=== PATIENT | male | born 2000 | race Two or more races ===

== ENCOUNTER 2025-08-08 13:01 | Inpatient (IN) | payer MEDICAID, SELFPAY ==
[2025-08-08] VITALS (26 sets, daily range): BP systolic 116–144; BP diastolic 73–91; PULSE 101–197; RESP 18–26; TEMP 36.3–37.2; O2SAT 96–98; BMI 32.4
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
[2025-08-08] MEDS: LORazepam 2 MG/ML VIAL IM (13:13)
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
--- NOTE | 2025-08-08 13:24 | EKG_ITS ---
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
--- NOTE | 2025-08-08 13:43 | PC.NURSE ---
md aware of heart rate 190s placed pt on monitor pulse ox. pt is diphoretic but not c/o of pain. ekg done and pt is in svt.
[2025-08-08 13:50] LABS: Basophils # (Auto) 0.1 Thou/mm3 (0.0-0.2); Basophils % (Auto) 0 % (0-2.5); Eosinophils # (Auto) 0.1 Thou/mm3 (0.0-0.5); Eosinophils % (Auto) 0 % (0-10); Hematocrit 48.9 % (41.0-53.0); Hemoglobin 16.5 g/dL (13.5-16.0); Immature Granulocytes Auto 0.33 Thou/mm3 (0.00-0.00); Lymphocytes # (Auto) 2.5 Thou/mm3 (1.0-4.8); Lymphocytes % (Auto) 10 % (10-50); Mean Corpuscular HGB Conc 33.7 g/dl (31.0-37.0); Mean Corpuscular Hemoglobin 29.0 pg (25.0-35.0); Mean Corpuscular Volume 86 fL (80-100); Monocytes # (Auto) 1.1 Thou/mm3 (0.0-0.8); Monocytes % (Auto) 5 % (0-12); Neutrophils # (Auto) 20.5 Thou/mm3 (1.8-7.7); Neutrophils % (Auto) 84 % (37-80); Nucleated Red Blood Cell # 0.00 Thou/mm3 (0.00-0.00); Nucleated Red Blood Cell % 0 /100 WBC (0); Platelet Count 364 Thou/mm3 (140-440); RDW Standard Deviation 38.4 fL (35.1-43.9); Red Blood Count 5.68 Miln/mm3 (4.50-5.90); White Blood Count 24.5 Thou/mm3 (3.8-10.6)
[2025-08-08] MEDS: LORazepam 2 MG/ML VIAL 1 MG IVP (14:10)
[2025-08-08] MEDS: SODIUM CHLORIDE 0.9% 1000 ML 1,000 ML 999 ML IV ×2 (14:11→15:42)
[2025-08-08 14:13] LABS: Amphetamine/Methamp Scrn,U Negative (Negative); Barbiturate Screen,Urine Negative (Negative); Benzodiazepines Screen,Urine Negative (Negative); Benzoylecgonine Screen, Ur Negative (Negative); Fentanyl Screen,Urine Negative (Negative); Opiate Screen,Urine Negative (Negative); THC Screen,Urine Negative (Negative)
[2025-08-08 14:28] LABS: Lactate (Lactic Acid) 22.0 mMol/L (0.4-2.0)
[2025-08-08 14:48] LABS: Base Excess -9 (-3-3); HCO3 16 mEq/L (20-26); Inspired Oxygen, FIO2 21 %; O2 Saturation 98 % (91-98); PCO2 29 mmHg (32.0-48.0); PO2 91 mmHg (83-108); pH, Arterial 7.33 (7.35-7.45)
[2025-08-08 15:03] LABS: Allen Test Performed/OK; Puncture Site Right Radial
[2025-08-08 15:14] LABS: Alanine Aminotransferase 66 U/L (10-49); Albumin, Serum 5.7 gm/dL (3.5-5.0); Albumin/Globulin Ratio 2.2 (1.2-2.2); Alcohol, Blood Medical < 3.0 mg/dL (0-10.0); Alkaline Phosphatase 110 U/L (46-116); Anion Gap 29 (7-16); Aspartate Amino Transferase 34 U/L (0-34); BUN/Creatinine Ratio 9 Ratio (12-20); Bilirubin,Total 0.4 mg/dL (0.3-1.2); Blood Urea Nitrogen 14 mg/dL (9-23); Calcium 10.5 mg/dL (8.3-10.6); Calcium (Corrected) 10.5 mg/dL (8.5-10.1); Chloride 102 mMol/L (98-107); Creatinine (Component) 1.5 mg/dL (0.6-1.3); Estimated Creatinine Clearance 91.9 mL/min (>60); Globulin 2.6 gm/dL (2.3-3.5); Glucose 310 mg/dL (74-106); Osmolality,Calculated 293 (275-295); Potassium 3.6 mMol/L (3.4-5.1); Procalcitonin 0.08 ng/ml (0.0-0.49); Sodium 141 mMol/L (136-145); Total Protein 8.3 gm/dL (5.7-8.2); eGFR > 60 See Note
[2025-08-08 15:16] LABS: Carbon Dioxide < 10.0 mMol/L (20.0-31.0)
[2025-08-08 15:18] LABS: Ammonia 197 uMol/L (11-32)
[2025-08-08 15:50] LABS: Collection Type, Urine Catheter
[2025-08-08 15:56] LABS: Bilirubin,Urine Negative (Negative); Blood,Urine Negative (Negative); Clarity,Urine Clear (Clear/Hazy); Color,Urine Yellow (Lt Yel-Yel); Culture Indicated,Urine Not Indicated; Glucose, Urine Negative (Negative); Ketones,Urine Negative (Negative); Leukocyte Esterase,Urine Negative (Negative); Nitrite,Urine Negative (Negative); PH,Urine 5.5 (5.0-7.0); Protein,Urine 1+ (Neg - Trace); RBC,Urine 1 /hpf (0-3); Specific Gravity,Urine 1.021 (1.001-1.035); Squamous Epithelial Cell,Urine 1 /hpf (0-5); Urobilinogen,Urine Negative mg/dL (0.0-1.0); WBC,Urine 1 /hpf (0-5)
--- NOTE | 2025-08-08 16:00 | PC.NURSE ---
admit md at bedside for admission evaluation. day care assistant and sitter at bedside.
[2025-08-08 16:04] LABS: Beta Hydroxybutyrate 0.1 mmol/L (<0.6)
[2025-08-08 16:29] LABS: Creatine Kinase 131 U/L (34-171); Salicylate < 3.0 mg/dL
[2025-08-08 16:38] LABS: Reflex Lactate? Y
[2025-08-08 16:42] LABS: Lactic Acid, 3 HR 5.3 mMol/L (0.4-2.0)
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
--- NOTE | 2025-08-08 17:34 | XR_ITS ---
EXAMINATION: AP chest single view TECHNIQUE: AP portable semiupright chest single view Date and time: August 08, 2025, 1747 hours INDICATIONS: Tachycardia tachypnea today. FINDINGS: Minor prominence left ventricle Moderate vascular congestion. Mild elevation right hemidiaphragm. No pneumonia or pulmonary edema. The trachea is deviated to the right which may be a function of head rotation clinical correlation advised IMPRESSION: Moderate vascular congestion
--- NOTE | 2025-08-08 17:39 | XR_ITS ---
Examination: Abdomen sonogram, Limited Date and time of exam: August 08, 2025, 1938 hours INDICATIONS: Hyper ammonia anemia today elevated liver function tests, suspect primary bowel cellular disease Technique: Real-time weiss scale transabdominal sonographic images of the upper abdomen obtained. Findings: Normal gallbladder. Normal common bile duct 0.5 cm Pancreas obscured by bowel gas Very limited visualization of the liver with fatty infiltration Normal hepatopetal portal venous flow Patent IVC IMPRESSION: Limited study Normal gallbladder Very poor visualization liver
[2025-08-08 18:03] LABS: Ammonia 25 uMol/L (11-32); Glucose Estimated Average 103 mg/dL (80-131); Hemoglobin A1C 5.2 % Hgb (4.8-6.0)
[2025-08-08 18:05] LABS: Alanine Aminotransferase 62 U/L (10-49); Albumin, Serum 4.7 gm/dL (3.5-5.0); Albumin/Globulin Ratio 2.4 (1.2-2.2); Alkaline Phosphatase 85 U/L (46-116); Anion Gap 11 (7-16); Aspartate Amino Transferase 72 U/L (0-34); BUN/Creatinine Ratio 10 Ratio (12-20); Bilirubin,Total 0.3 mg/dL (0.3-1.2); Blood Urea Nitrogen 10 mg/dL (9-23); Calcium 9.0 mg/dL (8.3-10.6); Calcium (Corrected) 9.0 mg/dL (8.5-10.1); Carbon Dioxide 18.9 mMol/L (20.0-31.0); Chloride 110 mMol/L (98-107); Creatinine (Component) 1.0 mg/dL (0.6-1.3); Estimated Creatinine Clearance 137.8 mL/min (>60); Globulin 2.0 gm/dL (2.3-3.5); Glucose 106 mg/dL (74-106); Osmolality,Calculated 278 (275-295); Potassium 4.2 mMol/L (3.4-5.1); Sodium 140 mMol/L (136-145); Total Protein 6.7 gm/dL (5.7-8.2); eGFR > 60 See Note
[2025-08-08] MEDS: RINGERS LACTATED 1000 ML 1,000 ML 125 ML IV (18:05)
--- NOTE | 2025-08-08 18:55 | PC.NURSE ---
admit aware that pt is starting to get al little agitated and may need to have some medication to relax him. pt did not have any meds today that he usually takes at home.
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
[2025-08-08 20:45] LABS: Hepatitis A Antibody IgM Non Reactive (Non React); Hepatitis B Core Antibody IgM Non Reactive (Non React); Hepatitis B Surface Antigen Non Reactive (Non React); Hepatitis C Antibody Non Reactive (Non React)
[2025-08-08 21:13] LABS: Lactate (Lactic Acid) 2.7 mMol/L (0.4-2.0)
[2025-08-09] VITALS: BP 117/78; PULSE 95; PULSE 99; RESP 12; TEMP 37.2; O2SAT 96
[2025-08-09 00:11] LABS: Reflex Lactate? Y
[2025-08-09 01:03] LABS: Lactic Acid, 3 HR 1.9 mMol/L (0.4-2.0)
[2025-08-09] MEDS: RINGERS LACTATED 1000 ML 1,000 ML 125 ML IV ×2 (02:26→10:13)
[2025-08-09 04:00] VITALS: BP 135/67; PULSE 75; PULSE 93; RESP 24; TEMP 36.6; O2SAT 96
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
[2025-08-09 06:08] LABS: Basophils # (Auto) 0.0 Thou/mm3 (0.0-0.2); Basophils % (Auto) 0 % (0-2.5); Eosinophils # (Auto) 0.1 Thou/mm3 (0.0-0.5); Eosinophils % (Auto) 1 % (0-10); Hematocrit 39.9 % (41.0-53.0); Hemoglobin 14.0 g/dL (13.5-16.0); Immature Granulocytes Auto 0.04 Thou/mm3 (0.00-0.00); Lymphocytes # (Auto) 1.3 Thou/mm3 (1.0-4.8); Lymphocytes % (Auto) 12 % (10-50); Mean Corpuscular HGB Conc 35.1 g/dl (31.0-37.0); Mean Corpuscular Hemoglobin 29.7 pg (25.0-35.0); Mean Corpuscular Volume 85 fL (80-100); Monocytes # (Auto) 1.0 Thou/mm3 (0.0-0.8); Monocytes % (Auto) 9 % (0-12); Neutrophils # (Auto) 8.5 Thou/mm3 (1.8-7.7); Neutrophils % (Auto) 78 % (37-80); Nucleated Red Blood Cell # 0.00 Thou/mm3 (0.00-0.00); Nucleated Red Blood Cell % 0 /100 WBC (0); Platelet Count 230 Thou/mm3 (140-440); RDW Standard Deviation 38.5 fL (35.1-43.9); Red Blood Count 4.71 Miln/mm3 (4.50-5.90); White Blood Count 10.9 Thou/mm3 (3.8-10.6)
[2025-08-09 06:48] LABS: Alanine Aminotransferase 75 U/L (10-49); Albumin, Serum 4.3 gm/dL (3.5-5.0); Albumin/Globulin Ratio 2.9 (1.2-2.2); Alkaline Phosphatase 77 U/L (46-116); Anion Gap 10 (7-16); Aspartate Amino Transferase 171 U/L (0-34); BUN/Creatinine Ratio 9 Ratio (12-20); Bilirubin,Total 0.5 mg/dL (0.3-1.2); Blood Urea Nitrogen 7 mg/dL (9-23); Calcium 8.8 mg/dL (8.3-10.6); Calcium (Corrected) 8.8 mg/dL (8.5-10.1); Carbon Dioxide 22.4 mMol/L (20.0-31.0); Chloride 109 mMol/L (98-107); Creatinine (Component) 0.8 mg/dL (0.6-1.3); Estimated Creatinine Clearance 165.3 mL/min (>60); Globulin 1.5 gm/dL (2.3-3.5); Glucose 96 mg/dL (74-106); Magnesium 1.9 mg/dL (1.6-2.6); Osmolality,Calculated 279 (275-295); Phosphorous 3.2 mg/dL (2.4-5.1); Potassium 3.9 mMol/L (3.4-5.1); Sodium 141 mMol/L (136-145); Thyroid Stimulating Hormone 1.40 uIU/mL (0.55-4.78); Total Protein 5.8 gm/dL (5.7-8.2); eGFR > 60 See Note
[2025-08-09 06:54] VITALS: PULSE 105; RESP 105; RESP 16
[2025-08-09 08:00] VITALS: BP 121/75; PULSE 117; PULSE 95; RESP 15; TEMP 36.6; O2SAT 94
--- NOTE | 2025-08-09 10:08 | PC.SS ---
SS follow up note; SS was informed by Dr. Capps that patient is medically cleared. SS updated Дмитрий STOVALL and he informed SS he would contact Dorota RIDDLE to update and inform her patient is medically cleared.
[2025-08-09] MEDS: HEPARIN SOD INJ 5000 UNIT/ML VIAL SC (10:14)
--- NOTE | 2025-08-09 10:30 | PC.SS ---
CHIEF ENVIRONMENTAL COMMITMENT OFFICER notified that patient has been medically cleared for mental health evaluation. CHIEF ENVIRONMENTAL COMMITMENT OFFICER notified ED coordinator.
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
[2025-08-09 12:00] VITALS: BP 129/86; PULSE 91; PULSE 93; RESP 22; TEMP 36.3; O2SAT 96
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
--- NOTE | 2025-08-09 15:25 | PC.NURSE ---
Confirmed with Dr. Merchant as seizure as underlying cause of lactic acidosis.
--- NOTE | 2025-08-09 15:27 | PC.NURSE ---
Confirmed discharge orders with Dr. Merchant. per pt is ready for discahrge.
[2025-08-09 16:00] VITALS: BP 131/80; PULSE 104; PULSE 73; RESP 20; TEMP 37.1; O2SAT 97
== END 2025-08-09 16:10 | disposition skilled nursing facility (03) | DRG 52 ==
LOC: SERX 15:55 → SERHOLD 17:53 → S2NX 20:22
PROVIDERS: Student in an Organized Health Care Education/Training Program; Admitting Provider Student in an Organized Health Care Education/Training Program; Emergency Provider Emergency Medicine; PCP Family Medicine; Visit Provider Student in an Organized Health Care Education/Training Program
DX: G93.41 Metabolic encephalopathy (principal); Z78.1 Physical restraint status; F39 Unspecified mood [affective] disorder; E87.20 Acidosis, unspecified; D72.829 Elevated white blood cell count, unspecified; E72.20 Disorder of urea cycle metabolism, unspecified; R73.9 Hyperglycemia, unspecified; N17.9 Acute kidney failure, unspecified; R00.0 Tachycardia, unspecified; R74.01 Elevation of levels of liver transaminase levels; R62.50 Unspecified lack of expected normal physiological development in childhood
CPT/HCPCS: 36415; 36600; 71045; 76705; 80053; 80074; 80307; 80320; 80329; 81001; 82010; 82140; 82550; 82803; 83036; 83605; 83735; 84100; 84145; 84443; 85025; 87040; 93005; 96127; 96361; 96374; 99285; J1644; J2060; J7030; J7120; G0480

== ENCOUNTER 2025-08-25 15:35 | Inpatient (IN) | payer MEDICAID, SELFPAY ==
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
--- NOTE | 2025-08-25 16:22 | EDNOTE_ITS ---
ED Psych RME/HPI General Chief Complaint: Psychiatric Symptoms Stated Complaint: NOT TALKING Time Seen by Provider: 08/25/25 16:03 Arrival date/time: 08/25/25 15:35 25-year-old male patient with significant history of schizophrenia, taking haloperidol, risperidone was brought in by caregiver after patient was noted to be more aggressive today, pacing a lot, not following commands and not talking. No other pertinent information can be evaluated at this time. Patient is taking an unrecalled seizure medication. Related Data Home Medications ?Medication ?Instructions ?Recorded ?Confirmed acetaminophen 500 mg tablet (Pain 500 mg PO Q6H PRN fe marcus or pain 08/08/25 08/25/25 Relief (acetaminophen)) famotidine 20 mg tablet 20 mg PO BID 08/08/25 loperamide 2 mg capsule 2 mg PO Q6H PRN loose stool 08/08/25 08/25/25 loratadine 10 mg tablet 10 mg PO Q24H PRN allergy sy mptoms 08/08/25 08/25/25 lorazepam 1 mg tablet 0.5 mg PO Q8H PRN agitation 08/08/25 08/25/25 melatonin 3 mg capsule 3 mg PO HS 08/08/25 08/25/25 menthol 0.44 %-zinc oxide 20.6 % 1 applic topical BID PRN wound 08/08/25 08/25/25 topical ointment (Calmoseptine) healing multivitamin (One Daily 1 tab PO DAILY 08/08/2508/06 Multivitamin tablet) polyethylene glycol 3350 17 17 g PO .q2day PRN constip ation 08/08/25 08/25/25 gram/dose oral powder (ClearLax) risperidone 1 mg tablet 1 mg PO .am 08/08/25 5 risperidone 2 mg tablet 2 mg PO BID 08/08/25 5 sennosides 8.6 mg tablet (senna) 8.6 mg PO HS 08/08/25 08/25/25 Allergies Allergy/AdvReac Type Severity Reaction Status Date / Time No Known Allergies Allergy Verified 08/25/25 15:38 Review of Systems Review of Systems Narrative Review of Systems: Review of system reviewed and within normal limits except mentioned in HPI ED Exam Narrative Physical exam: VITAL SIGNS: Reviewed. GENERAL APPEARANCE: Alert and no eye contact, does not follows commands, no acute distress, aggressive HEAD AND FACE: Non-traumatic. ENT: PERRL, pink conjunctivitis, eyelid no trauma, Mucous membrane moist. NECK: Supple, nontender, no nuchal rigidity. CHEST: No tenderness, no crepitus, no paradoxical movement, no retractions. LUNGS: Clear, well ventilated, symmetric, no rales, no wheezing, no ronchi, no stridor, good breath sounds bilaterally. HEART: Regular rate, regular rhythm, no murmur, no gallops. ABDOMEN: Soft, positive bowel sounds, nondistended, no guarding, nontender, no rebound, no masses, RECTAL: Deferred. GENITAL: Deferred. NEUROLOGICAL: Gross motor function intact sensory function intact, Appropriate for age. MUSCULOSKELETAL: low back nontender, full range of motion. EXTREMITIES: Nontender, full range of motion. SKIN: Color pink, dry, no rash, no lacerations, no abrasions, no contusions. LYMPHATICS: Deferred. Course Quality Measures none Orders Category Date Time Status 4 HR Behavioral Restraints Q15M Care 08/25/25 16:00 Completed COVID-19 Screening Questionnaire NOW Care 08/25/25 20:33 Active Decision to Admit X1 Care 08/25/25 20:33 Completed EKG (ED ONLY) *Do not use* NOW Care 08/25/25 16:49 Completed One-to-one observation NOW Care 08/25/25 19:31 Active Suicide precautions NOW Care 08/25/25 19:[address] head/brain wo con Stat Exams 08/25/25 18:12 Taken EKG (ED Only) Stat Exams 08/25/25 16:49 Draft Acetone [Beta Hydroxybutyrate] Stat Lab 08/25/25 16:50 Completed Ammonia Stat Lab 08/25/25 16:50 Completed CBC Stat Lab 08/25/25 16:50 Completed Comprehensive Metabolic Panel Stat Lab 08/25/25 16:50 Completed Creatine Kinase Stat Lab 08/25/25 19:08 Completed Drug Screen,Urine Stat Lab 08/25/25 17:10 Completed Hemoglobin A1C [Glycohemoglobin w (eAG)] Stat Lab 08/25/25 16:50 Completed Lactate (Lactic Acid) Stat Lab 08/25/25 16:50 Completed Lactate (Lactic Acid) Stat Lab 08/25/25 19:25 Completed Magnesium Stat Lab 08/25/25 16:50 Completed Partial Thromboplastin Time Stat Lab 08/25/25 16:50 Completed Renal Function Panel Stat Lab 08/25/25 19:25 Completed Urinalysis, C/S if Indicated Stat Lab 08/25/25 17:10 Completed VBG [Venous Blood Gas] Stat Lab 08/25/25 16:50 Completed VBG [Venous Blood Gas] Stat Lab 08/25/25 19:25 Completed Vitamin B1 (Thiamine)* Stat Lab 08/25/25 Ordered DiphenhydrAMINE INJ [Benadryl Inj] Med 08/25/25 16:18 Discontinued 50 mg IVP X1 ONE LORazepam [Ativan Inj] Med 08/25/25 16:18 Discontinued 2 mg IVP X1 ONE Nitroglycerin [Nitrostat 1/150] Med 08/25/25 16:18 Discontinued 0.4 mg SL [id number] PRN Ringers Lactated 1000 ml [Lactated Ringers] 1,000 ml Med 08/25/25 16:19 Discontinued IV 999 mls/hr Ringers Lactated 1000 ml [Lactated Ringers] 1,000 ml Med 08/25/25 18:15 Discontinued IV 999 mls/hr Ringers Lactated 1000 ml [Lactated Ringers] 1,000 ml Med 08/25/25 19:39 Discontinued IV 999 mls/hr Sodium Chloride 0.9% 1000 ml [Ns] 1,000 ml Med 08/25/25 17:25 Discontinued IV 999 mls/hr Vital Signs Vital signs: Vital Signs Pulse Rate 132 H 08/25/25 16:57 Respiratory Rate 24 H 08/25/25 16:57 Blood Pressure 150/91 H 08/25/25 16:57 Pulse Oximetry (%) 95 08/25/25 16:57 Oxygen Delivery Method Room Air 08/25/25 16:57 Psych MDM Narrative MDM Narrative:: 25-year-old male patient with significant history of schizophrenia, taking haloperidol, risperidone was brought in by caregiver after patient was noted to be more aggressive today, pacing a lot, not following commands and not talking. No other pertinent information can be evaluated at this time. Patient is taking an unrecalled seizure medication. Code isela called, patient was well aggressive, patient was helped to the bed, and four-point restraint was ordered. Patient was given IV fluids, total of 3 L, IV Ativan, and Benadryl, on reevaluation patient was back to his baseline, I removed restraints. Patient's laboratory workup is significant for a lactic acid 4.1, WBC count of 18.2 initial VBG was noted to be acidotic. CO2 13.8. Anion gap of 21. Patient is having metabolic acidosis. Repeat lactic acid went down to 7.1 CT scan of the head came back unremarkable. Ammonia level was also elevated 104 creatinine kinase was elevated and 182 urinalysis negative for drug toxicity. Spoke with hospitalist, discussed the case, admitted the patient. Patient data External records reviewed:: None Clinical information provided by:: children[employer] caretaker Social determinants that could affect healthcare access:: none Patient has the following chronic illnesses:: Mental retardation, lactic acidosis, history of seizure disorder, chronic schizophrenia How is presenting disease/condition affected by chronic disease/condition?: exa cerbated by Evaluation data The following diagnostics were reviewed and interpreted by me:: lab results, radiology exam(s) and EKG tracing(s) Lab and/or radiology exams considered but not ordered:: None Interpretation Summary: Stable Medications / Prescriptions Medications or Prescriptions considered but not ordered:: None Medication administrations:: Medication Administration History Acetaminophen (Acetaminophen 325 Mg Tablet) 650 mg PO Q6H PRN PRN Reason: PAIN (1-3) OR FEVER > 100.4 Stop: 09/24/25 21:40 Enoxaparin Sodium (Enoxaparin Sod Inj 40 Mg/0.4 Ml Syringe) 40 mg SC QDAY ISAIAS Stop: 09/09/25 08:59 Lactated Ringer's (Lactated Ringers) 1,000 mls @ 100 mls/hr IV .Q10H ISAIAS Stop: 08/26/25 17:44 Potassium Phosphate 22.5 mmol/ (Sodium Chloride) 507.5 mls @ 82.778 mls/hr IV X1 ONE Stop: 08/26/25 03:56 Lactulose (Lactulose Syrup 20 Gm/30 Ml Udc) 10 gm PO BID ISAIAS; Protocol Stop: 09/25/25 08:59 Lorazepam (Lorazepam 2 Mg/Ml Vial) 2 mg IVP Q15MIN PRN PRN Reason: seizure breakthrough Pantoprazole Sodium (Pantoprazole 40 Mg Tablet) 40 mg PO QDAY ISAIAS Stop: 09/25/25 08:59 Sennosides (Senna Tablet) 1 tab PO QDAY ISAIAS; Protocol Stop: 09/25/25 08:59 Discontinued Medications Diphenhydramine HCl (Diphenhydramine Inj 50 Mg/Ml Vial) 50 mg IVP X1 ONE Stop: 08/25/25 16:19 Last Admin: 08/25/25 16:48 Dose: 50 mg Documented By: BY Lactated Ringer's (Lactated Ringers) 1,000 mls @ 999 mls/hr IV .Q1H1M ONE Stop: 08/25/25 17:19 Last Infusion: 08/25/25 17:49 Dose: Infused Documented By: Admin: 08/25/25 16:48 Dose: 999 mls/hr Documented By: BY Sodium Chloride (Ns) 1,000 mls @ 999 mls/hr IV .Q1H1M ONE Stop: 08/25/25 18:25 Last Infusion: 08/25/25 18:38 Dose: Infused Documented By: Admin: 08/25/25 17:36 Dose: 999 mls/hr Documented By: VL Lactated Ringer's (Lactated Ringers) 1,000 mls @ 999 mls/hr IV .Q1H1M ONE Stop: 08/25/25 19:15 Last Infusion: 08/25/25 20:15 Dose: Infused Documented By: Admin: 08/25/25 18:37 Dose: 999 mls/hr Documented By: BY Lactated Ringer's (Lactated Ringers) 1,000 mls @ 999 mls/hr IV .Q1H1M ONE Stop: 08/25/25 20:39 Last Admin: 08/25/25 19:58 Dose: 999 mls/hr Documented By: BR Lorazepam (Lorazepam 2 Mg/Ml Vial) 2 mg IVP X1 ONE Stop: 08/25/25 16:19 Last Admin: 08/25/25 16:44 Dose: 2 mg Documented By: BY Nitroglycerin (Nitroglycerin 0.4 Mg Subl Btl #25) 0.4 mg SL [id number] PRN PRN Reason: CHEST PAIN Stop: 09/24/25 16:17 Potassium Phos/Sodium Phos (Naph,[facility] Mbdb 1 Packet (1.5 Gm)) 1 packet PO X1 ONE Stop: 08/25/25 22:03 See above Consultations Consultation(s) initiated? (list below): No Diagnosis Psych Differential Diagnosis: acute psychosis, chronic schizophrenia, drug- induced psychotic disorder and acute anxiety Most likely diagnosis given after review of the tests above:: Metabolic acidosis Admission Indicated Admission indicated?: indicated Admission Request Was there a request for admission?: Yes Admission Attestation Admission request attestation: Discussed case with [Dr. Humphries] from Hospitalist service regarding admission. Discussed patients ED course, exam findings, labs, and radiology results. The Hospitalist [agrees] to accept the patient for admission. Disposition Plan Disposition Plan: Admit Discharge Plan Plan Patient Disposition: Admit Acute Care w/in Hospital Problem List Clinical Impression: Metabolic acidosis, Acute psychosis
[2025-08-25] MEDS: LORazepam 2 MG/ML VIAL IVP (16:44)
[2025-08-25] MEDS: RINGERS LACTATED 1000 ML 1,000 ML 999 ML IV ×3 (16:48→19:58)
--- NOTE | 2025-08-25 16:49 | EKG_ITS ---
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
[2025-08-25 16:57] VITALS: BP 150/91; PULSE 132; RESP 24; O2SAT 95
[2025-08-25 16:58] VITALS: BMI 38.2
[2025-08-25 17:05] LABS: Base Excess, Venous -11 (-3-3); O2 Saturation, Venous 84 % (96-97); PCO2, Venous 29 mmHg (36-56); PO2, Venous 50 mmHg (15-58); pH, Venous 7.29 (7.33-7.66)
[2025-08-25 17:06] LABS: Lactate (Lactic Acid) 14.1 mMol/L (0.4-2.0)
[2025-08-25 17:07] LABS: Basophils # (Auto) 0.1 Thou/mm3 (0.0-0.2); Basophils % (Auto) 0 % (0-2.5); Eosinophils # (Auto) 0.1 Thou/mm3 (0.0-0.5); Eosinophils % (Auto) 0 % (0-10); Hematocrit 46.9 % (41.0-53.0); Hemoglobin 15.8 g/dL (13.5-16.0); Immature Granulocytes Auto 0.13 Thou/mm3 (0.00-0.00); Lymphocytes # (Auto) 1.5 Thou/mm3 (1.0-4.8); Lymphocytes % (Auto) 8 % (10-50); Mean Corpuscular HGB Conc 33.7 g/dl (31.0-37.0); Mean Corpuscular Hemoglobin 28.9 pg (25.0-35.0); Mean Corpuscular Volume 86 fL (80-100); Monocytes # (Auto) 0.7 Thou/mm3 (0.0-0.8); Monocytes % (Auto) 4 % (0-12); Neutrophils # (Auto) 15.8 Thou/mm3 (1.8-7.7); Neutrophils % (Auto) 87 % (37-80); Nucleated Red Blood Cell # 0.00 Thou/mm3 (0.00-0.00); Nucleated Red Blood Cell % 0 /100 WBC (0); Platelet Count 280 Thou/mm3 (140-440); RDW Standard Deviation 38.5 fL (35.1-43.9); Red Blood Count 5.47 Miln/mm3 (4.50-5.90); White Blood Count 18.2 Thou/mm3 (3.8-10.6)
[2025-08-25 17:11] LABS: Beta Hydroxybutyrate 0.2 mmol/L (<0.6)
[2025-08-25 17:21] LABS: Partial Thromboplastin Time 25.4 Seconds (22.0-36.0)
[2025-08-25 17:24] LABS: Alanine Aminotransferase 75 U/L (10-49); Albumin, Serum 5.2 gm/dL (3.5-5.0); Albumin/Globulin Ratio 2.4 (1.2-2.2); Alkaline Phosphatase 100 U/L (46-116); Anion Gap 25 (7-16); Aspartate Amino Transferase 38 U/L (0-34); BUN/Creatinine Ratio 11 Ratio (12-20); Bilirubin,Total 0.3 mg/dL (0.3-1.2); Blood Urea Nitrogen 14 mg/dL (9-23); Calcium 9.7 mg/dL (8.3-10.6); Calcium (Corrected) 9.7 mg/dL (8.5-10.1); Chloride 100 mMol/L (98-107); Creatinine (Component) 1.3 mg/dL (0.6-1.3); Estimated Creatinine Clearance 98.3 mL/min (>60); Globulin 2.2 gm/dL (2.3-3.5); Glucose 217 mg/dL (74-106); Glucose Estimated Average 97 mg/dL (80-131); Hemoglobin A1C 5.0 % Hgb (4.8-6.0); Magnesium 2.0 mg/dL (1.6-2.6); Osmolality,Calculated 285 (275-295); Potassium 3.5 mMol/L (3.4-5.1); Sodium 139 mMol/L (136-145); Total Protein 7.4 gm/dL (5.7-8.2); eGFR > 60 See Note
[2025-08-25 17:26] LABS: Collection Type, Urine Clean Catch
[2025-08-25 17:29] LABS: Carbon Dioxide 13.8 mMol/L (20.0-31.0)
[2025-08-25 17:34] LABS: Bilirubin,Urine Negative (Negative); Blood,Urine Negative (Negative); Clarity,Urine Clear (Clear/Hazy); Color,Urine Colorless (Lt Yel-Yel); Culture Indicated,Urine Not Indicated; Glucose, Urine Negative (Negative); Ketones,Urine Negative (Negative); Leukocyte Esterase,Urine Negative (Negative); Nitrite,Urine Negative (Negative); PH,Urine 6.0 (5.0-7.0); Protein,Urine Negative (Neg - Trace); RBC,Urine 1 /hpf (0-3); Specific Gravity,Urine 1.008 (1.001-1.035); Squamous Epithelial Cell,Urine < 1 /hpf (0-5); Urobilinogen,Urine Negative mg/dL (0.0-1.0); WBC,Urine < 1 /hpf (0-5)
[2025-08-25 17:36] LABS: Ammonia 104 uMol/L (11-32)
[2025-08-25] MEDS: SODIUM CHLORIDE 0.9% 1000 ML 1,000 ML 999 ML IV (17:36)
[2025-08-25 17:37] VITALS: BP 113/64; PULSE 107; RESP 19; O2SAT 95
[2025-08-25 17:41] LABS: Amphetamine/Methamp Scrn,U Negative (Negative); Barbiturate Screen,Urine Negative (Negative); Benzodiazepines Screen,Urine Negative (Negative); Benzoylecgonine Screen, Ur Negative (Negative); Fentanyl Screen,Urine Negative (Negative); Opiate Screen,Urine Negative (Negative); THC Screen,Urine Negative (Negative)
--- NOTE | 2025-08-25 18:12 | XR_ITS ---
Examination: CT brain head without contrast. 2-D sagittal coronal reconstructions Date and time of exam: August 25, 2025, 1825 hours INDICATIONS: Seizure followed by altered mental status today CTDI: vol (mGy): 51.1 DLP: (mGycm): 1079 Technique: Multiple CT axial sections of the brain have been obtained, 5 mm slice thickness. Contrast has not been administered. 2-D sagittal, coronal reconstructions have been obtained Low dose protocols were performed. One or more of the following dose reduction techniques were used; automated exposure control, adjustment of the mA and/or KV according to patient size, use of iterative reconstruction technique. Findings: No significant ventricular enlargement. Intra-axial or extra-axial hemorrhage density is not seen. No mass effect or midline shift Basal cisterns are not remarkable. Fourth ventricle is midline. Cranial vault intact. Impression: Negative for acute hemorrhage, mass effect or midline shift
--- NOTE | 2025-08-25 18:13 | PD.RESEVENT ---
Documentation for date of: 08/25/25 Event Note Event Note: 25-year-old with underlying psychiatric illness, schizophrenia who presented to the ER with agitation and subsequently code Silver was activated and received Benadryl and haloperidol. After patient received these medications, patient underwent workup including renal panel with findings of metabolic acidosis and noted to have a lactate level of 14. Discussed case with emergency medicine provider and updated them that these are concerning for possible underlining seizure disorder and recommended obtaining a CT head prior to admission. Patient also noted to have a significant white count however no evidence of any infectious etiology and likely related to hemoconcentration secondary to possible underlying seizure disorder. I did update the ER that once CT head, repeat vbg, lactic acid and if the ct head is negative to reconsult medicine. ER provider and agreement with our plan and likely will need admission. Plan discussed with my attending Dr. Mary Jo Arellano MD PGY1
[2025-08-25 19:32] LABS: Base Excess, Venous -3 (-3-3); Lactate (Lactic Acid) 7.1 mMol/L (0.4-2.0); O2 Saturation, Venous 78 % (96-97); PCO2, Venous 35 mmHg (36-56); PO2, Venous 40 mmHg (15-58); pH, Venous 7.39 (7.33-7.66)
--- NOTE | 2025-08-25 19:39 | PRELIM_ITS ---
CT scan of the head without intravenous contrast (axial sections with sagittal and coronal reformats). August 25, 2025 at 1825 hours. Clinical History: Rule out intracranial pathology Comparison: No prior study is available for comparison Findings: No evidence of intracranial hemorrhage, mass effect, or midline shift. The ventricles and CSF spaces are unremarkable. The calvarium is unremarkable. The mastoid air cells and the visualized paranasal sinuses are clear. Impression: No evidence of intracranial hemorrhage, mass effect, or midline shift. Report Electronically Signed By: Bassem Salas 08/25/2025 7:39:10 PM [EST]
[2025-08-25 19:49] VITALS: BP 124/73; PULSE 94; RESP 19; TEMP 36.8; O2SAT 96
[2025-08-25 19:55] LABS: Albumin, Serum 3.5 gm/dL (3.5-5.0); Anion Gap 13 (7-16); BUN/Creatinine Ratio 11 Ratio (12-20); Blood Urea Nitrogen 8 mg/dL (9-23); Calcium 8.7 mg/dL (8.3-10.6); Calcium (Corrected) 9.1 mg/dL (8.5-10.1); Carbon Dioxide 20.2 mMol/L (20.0-31.0); Chloride 108 mMol/L (98-107); Creatinine (Component) 0.7 mg/dL (0.6-1.3); Estimated Creatinine Clearance 182.5 mL/min (>60); Glucose 79 mg/dL (74-106); Osmolality,Calculated 278 (275-295); Phosphorous 1.3 mg/dL (2.4-5.1); Potassium 4.3 mMol/L (3.4-5.1); Sodium 141 mMol/L (136-145); eGFR > 60 See Note
[2025-08-25 19:59] LABS: Reflex Lactate? Y
[2025-08-25 21:18] LABS: Creatine Kinase 982 U/L (34-171)
--- NOTE | 2025-08-25 21:40 | PD.RESHP ---
Documentation for date of: 08/25/25 [facility] History of Present Illness History of present illness: 25-year-old male with a history of developmental delay and possible schizophrenia (pending psychiatric evaluation) presents to the ED after his caregiver noticed him pacing and sweating around 2 PM. After showering, the patient appeared pale with a blank stare, was rocking, shaking, and had an elevated heart rate. He denies any history of seizures, though he is pending a neurology evaluation. The caregiver reports that the patient has experienced similar episodes of blank staring in the past. The patient selectively communicates but denies any thoughts of harming himself or others. He also denies any auditory or visual hallucinations. ED course: Initial vitals include T 98.3, BP 150/91, HR 132, RR 24, O2 sat 95% room air. Initial labs showed white blood cell count 18.2, pH 7.29 (with repeat at 7.39), sodium 141, potassium 4.3, bicarbonate 13.8 (repeat 20.2), creatinine 1.3 (repeat 0.7), lactic acid 14.1 (repeat 7.1), phosphorus 1.3, and ammonia 104. Head CT, toxicology screen, urinalysis, and urine drug screen were all negative. EKG showed sinus tachycardia with a heart rate of 109 and a QTc of 438 ms. In ED patient received lorazepam 2 mg IV x 1, Benadryl 50 mg IV x 1, and 4 L of IV fluids. Past medical history: As stated above. Past surgical history: Unknown at this time. Allergies: NKDA. Family history: Noncontributory. Social history: No alcohol use, no smoking, no illicit drug use. Patient admitted for workup of potential seizures. Review of Systems Review of Systems Narrative Review of Systems: All systems reviewed negative unless stated otherwise above. Exam Vital Signs Temp Pulse Resp BP Pulse Ox O2 Del Method 98.3 F 94 19 124/73 96 Room Air 08/25/25 19:49 08/25/25 19:49 08/25/25 19:49 08/25/25 19:49 08/25/25 19:49 08/25/25 19:49 Narrative Exam General: AOx1 (only to self), no acute distress, able to speak full sentences HEENT: NC/AT, mucous membranes moist, bilateral sclera anicteric Cardiovascular: regular rate and rhythm, S1/S2 present, no murmurs appreciated Pulmonary: clear to auscultation bilaterally, no rales/rhonchi/wheezes Abdominal: soft, non-tender, non-distended, no rebound/guarding, normal bowel sounds present Musculoskeletal: normal ROM, no peripheral edema Skin: warm and dry, intact, no rashes, Neuro: CN II-XII intact, no focal deficits Results: Labs 08/26/25 05:37 08/26/25 14:10 Labs: Short CBC 08/25/25 Range/Units 16:50 WBC 18.2 H (3.8-10.6) Thou/mm3 Hgb 15.8 (13.5-16.0) g/dL Hct 46.9 (41.0-53.0) % Plt Count 280 D (140-440) Thou/mm3 BMP 08/25/25 08/25/25 16:50 19:25 Sodium 139 141 Potassium 3.5 4.3 D Chloride 100 108 H Carbon Dioxide 13.8 L* 20.2 BUN 14 8 L Creatinine 1.3 0.7 D Glucose 217 H 79 D Calcium 9.7 8.7 Cardiac Enzymes 08/25/25 Range/Units 19:08 Total Creatine Kinase 982 H D (34-171) U/L Liver Function 08/25/25 08/25/25 Range/Units 16:50 19:25 Total Bilirubin 0.3 (0.3-1.2) mg/dL AST 38 H (0-34) U/L ALT 75 H (10-49) U/L Alkaline Phosphatase 100 (46-116) U/L Albumin 5.2 H 3.5 D (3.5-5.0) gm/dL Urine 08/25/25 Range/Units 17:10 Urine Color Colorless A (Lt Yel-Yel) Urine Clarity Clear (Clear/Hazy) Urine pH 6.0 (5.0-7.0) Ur Specific Street 1.008 (1.001-1.035) Urine Protein Negative (Neg - Trace) Urine Glucose (UA) Negative (Negative) ABG Interpretation ABG results: 08/25/25 08/25/25 16:50 19:25 VBG pH 7.29 L 7.39 VBG pCO2 29 L 35 L VBG pO2 50 40 VBG Base Excess -11 L -3 Quality Measures Quality Measures VTE prophylaxis Medications Home Medications and Allergies Home Medications ?Medication ?Instructions ?Recorded ?Confirmed ?Type acetaminophen 500 mg tablet (Pain 500 mg PO Q6H PRN fever or pain 08/08/25 08/25/25 History Relief (acetaminophen)) famotidine 20 mg tablet 20 mg PO BID 08/08/25 08/25/25 History loperamide 2 mg capsule 2 mg PO Q6H PRN loose stool 08/08/25 08/25/25 History loratadine 10 mg tablet 10 mg PO Q24H PRN allergy symptoms 08/08/25 08/25/25 History lorazepam 1 mg tablet 0.5 mg PO Q8H PRN agitation 08/08/25 08/25/25 History melatonin 3 mg capsule 3 mg PO HS 08/08/25 08/25/25 History menthol 0.44 %-zinc oxide 20.6 % 1 applic topical BID PRN wound 08/08/25 08/25/25 History topical ointment (Calmoseptine) healing multivitamin (One Daily 1 tab PO DAILY 08/08/25 08/25/25 History Multivitamin tablet) polyethylene glycol 3350 17 17 g PO .q2day PRN constipation 08/08/25 08/25/25 History gram/dose oral powder (ClearLax) risperidone 1 mg tablet 1 mg PO .am 08/08/25 08/25/25 History risperidone 2 mg tablet 2 mg PO BID 08/08/25 08/25/25 History sennosides 8.6 mg tablet (senna) 8.6 mg PO HS 08/08/25 08/25/25 History Allergies Allergy/AdvReac Type Severity Reaction Status Date / Time No Known Allergies Allergy Verified 08/25/25 15:38 Visit Medications Discontinued Medications Diphenhydramine HCl (Diphenhydramine Inj 50 Mg/Ml Vial) 50 mg IVP X1 ONE Stop: 08/25/25 16:19 Last Admin: 08/25/25 16:48 Dose: 50 mg Lactated Ringer's (Lactated Ringers) 1,000 mls @ 999 mls/hr IV .Q1H1M ONE Stop: 08/25/25 17:19 Last Infusion: 08/25/25 17:49 Dose: Infused Sodium Chloride (Ns) 1,000 mls @ 999 mls/hr IV .Q1H1M ONE Stop: 08/25/25 18:25 Last Infusion: 08/25/25 18:38 Dose: Infused Lactated Ringer's (Lactated Ringers) 1,000 mls @ 999 mls/hr IV .Q1H1M ONE Stop: 08/25/25 19:15 Last Infusion: 08/25/25 20:15 Dose: Infused Lactated Ringer's (Lactated Ringers) 1,000 mls @ 999 mls/hr IV .Q1H1M ONE Stop: 08/25/25 20:39 Last Admin: 08/25/25 19:58 Dose: 999 mls/hr Lorazepam (Lorazepam 2 Mg/Ml Vial) 2 mg IVP X1 ONE Stop: 08/25/25 16:19 Last Admin: 08/25/25 16:44 Dose: 2 mg Nitroglycerin (Nitroglycerin 0.4 Mg Subl Btl #25) 0.4 mg SL [id number] PRN PRN Reason: CHEST PAIN Stop: 09/24/25 16:17 Assessment & Plan Plan 25-year-old male with a history of developmental delay and possible schizophrenia (pending psychiatric evaluation) presents to the ED after his caregiver noticed him pacing and sweating around 2 PM, along with a blank stare. Patient admitted for workup of potential seizure. #Acute encephalopathy #Hyperammonemia #Seizures DDx metabolic vs infection vs seizures vs hypoxia Alert and oriented x 1 (self only) Patient denies any history of seizures, though he is pending a neurology evaluation. The caregiver reports that the patient has experienced similar episodes of blank staring in the past. No source of infection, CMP shows hyperammonemia (104) and hypophosphatemia, possible seizures, not hypoxic No tonic-clonic seizures No urinary/ bowel incontinence WBC 18.2, afebrile, UA clear Head CT negative Plan ? Neurology consulted, Dr. Kurtz ? EEG ordered ? Lorazepam 2 mg IV for possible seizures ? Hold starting Keppra as suspicion of seizure is low ? Potassium phosphate IV X1 for hypophosphatemia ? Lactulose 10 g p.o. twice daily #Lactic acidosis, resolved Initially presented with lactic acid of 14.2 but with aggressive IV fluids (4 L + maintenance 150cc/hr) now at normal range #Elevated creatine kinase #Hyperkalemia In setting of seizure Aggressive fluid hydration. Monitor and correct as needed. Health Maintenance: Diet: N.p.o. GI prophylaxis: None DVT prophylaxis: Lovenox Antibiotics: None CODE STATUS: Full Disposition: Telemetry Case discussed with my attending Dr. Mayberry, and senior resident, Dr. Yandel Goodman MD PGY-1 Attending Provider Attestation/Addendum After examination of the patient and review of the clinical data I feel that this patient needs admission to the hospital for further treatment/evaluation. Plan of care discussed with patient and is in agreement. I Natalya Mayberry MD, attest that I was physically present for alfredo portions of evaluation, and examined patient, labs and imagings and plan of care were discussed with IM residents team, and I agree with the findings and plans documented above.
[2025-08-25 22:29] LABS: Reflex Lactate? Y
[2025-08-25 22:44] VITALS: PULSE 88
[2025-08-25 22:46] VITALS: BP 123/82; PULSE 81; RESP 18; O2SAT 96
[2025-08-25 23:14] LABS: Lactate (Lactic Acid) 1.4 mMol/L (0.4-2.0)
[2025-08-25 23:57] VITALS: BP 131/87; PULSE 80; RESP 17; TEMP 36.8; O2SAT 96
[2025-08-26] VITALS (9 sets, daily range): BP systolic 94–130; BP diastolic 65–80; PULSE 68–119; RESP 14–97; TEMP 35.6–36.7; O2SAT 92–98; BMI 37.0
[2025-08-26] MEDS: NAPH,KPH MBDB 1 PACKET (1.5 GM) PO (00:48)
[2025-08-26] MEDS: RINGERS LACTATED 1000 ML 1,000 ML 150 ML IV ×2 (00:48→07:22)
[2025-08-26 06:22] LABS: Basophils # (Auto) 0.0 Thou/mm3 (0.0-0.2); Basophils % (Auto) 0 % (0-2.5); Eosinophils # (Auto) 0.1 Thou/mm3 (0.0-0.5); Eosinophils % (Auto) 1 % (0-10); Hematocrit 41.9 % (41.0-53.0); Hemoglobin 14.5 g/dL (13.5-16.0); Immature Granulocytes Auto 0.03 Thou/mm3 (0.00-0.00); Lymphocytes # (Auto) 1.7 Thou/mm3 (1.0-4.8); Lymphocytes % (Auto) 20 % (10-50); Mean Corpuscular HGB Conc 34.6 g/dl (31.0-37.0); Mean Corpuscular Hemoglobin 29.6 pg (25.0-35.0); Mean Corpuscular Volume 86 fL (80-100); Monocytes # (Auto) 0.7 Thou/mm3 (0.0-0.8); Monocytes % (Auto) 8 % (0-12); Neutrophils # (Auto) 6.2 Thou/mm3 (1.8-7.7); Neutrophils % (Auto) 71 % (37-80); Nucleated Red Blood Cell # 0.00 Thou/mm3 (0.00-0.00); Nucleated Red Blood Cell % 0 /100 WBC (0); Platelet Count 82 Thou/mm3 (140-440); RDW Standard Deviation 38.5 fL (35.1-43.9); Red Blood Count 4.90 Miln/mm3 (4.50-5.90); White Blood Count 8.8 Thou/mm3 (3.8-10.6)
[2025-08-26 06:43] LABS: Anion Gap 10 (7-16); Aspartate Amino Transferase 88 U/L (0-34); Bilirubin,Total 0.6 mg/dL (0.3-1.2); Calcium 8.6 mg/dL (8.3-10.6); Carbon Dioxide 22.9 mMol/L (20.0-31.0); Chloride 108 mMol/L (98-107); Cholesterol 176 mg/dL (132-200); Creatinine (Component) 0.9 mg/dL (0.6-1.3); Estimated Creatinine Clearance 139.7 mL/min (>60); Glucose 96 mg/dL (74-106); Magnesium 2.0 mg/dL (1.6-2.6); Phosphorous 4.2 mg/dL (2.4-5.1); Sodium 141 mMol/L (136-145); Total Protein 6.2 gm/dL (5.7-8.2); eGFR > 60 See Note
[2025-08-26 06:44] LABS: Alanine Aminotransferase 66 U/L (10-49); Albumin, Serum 4.4 gm/dL (3.5-5.0); Albumin/Globulin Ratio 2.4 (1.2-2.2); Alkaline Phosphatase 63 U/L (46-116); BUN/Creatinine Ratio 8 Ratio (12-20); Blood Urea Nitrogen 7 mg/dL (9-23); Calcium (Corrected) 8.6 mg/dL (8.5-10.1); Cardiac Risk Estimate 4.2 RATIO (4.0-6.7); Globulin 1.8 gm/dL (2.3-3.5); HDL Cholesterol 42 mg/dL (40-60); LDL Cholesterol,Calculated 107 mg/dL (0-130); Osmolality,Calculated 279 (275-295); Potassium 5.6 mMol/L (3.4-5.1); Triglycerides 137 mg/dL (30-150)
[2025-08-26 07:00] LABS: Creatine Kinase > 1300 U/L (34-171)
[2025-08-26 09:33] LABS: Ammonia < 10 uMol/L (11-32)
[2025-08-26] MEDS: INSULIN HUM REGULAR 1 UNIT/0.01 ML (PER UNIT) 5 UNIT IV (09:43)
[2025-08-26] MEDS: ENOXAPARIN SOD INJ 40 MG/0.4 ML SYRINGE SC (09:44)
[2025-08-26] MEDS: DEXTROSE 50%-WATER INJ 50 ML SYRINGE 100 ML IV (09:44)
[2025-08-26] MEDS: DEXTROSE 10%-WATER 1000 ML 1,000 ML 100 ML IV (09:44)
[2025-08-26] MEDS: LACTULOSE SYRUP 20 GM/30 ML UDC 10 GM PO ×2 (09:45→22:11)
[2025-08-26] MEDS: PANTOPRAZOLE 40 MG TABLET PO (09:46)
--- NOTE | 2025-08-26 12:51 | ESPR_ITS ---
<Statement entered by Daphne Camargo MD - 09/05/25 08:32> I reviewed above note and agree with findings and plans. I have also personally examined the patient with medicine team and went over assessment and plan with medical team including internal grinder tender and resident physician. <Statement entered by Sheela Avina MD - 08/26/25 16:03> Patient is seen at bedside, confirmed over the phone with caregiver who witnessed the patient in a tonic-clonic seizure with postictal state. Labs are reviewed and patient is given 5 units of insulin and for hyperkalemia. EEG is pending as well as neuro recommendations regarding starting patient on antiepileptic medication. Patient was seen and examined by me personally. I have directly supervised and reviewed documentation by the team resident and agree with its findings. ------- Plan of care was discussed with the attending, Dr. Mary Jo Avina, PGY-2 Documentation for date of: 08/26/25 Subjective Subjective Interval history: * Patient seen and examined at bedside. * Potassium 5.6, given 5 U insulin and dextrose, repeat potassium 3.9. * Hyperammonemia resolved. Exam Vital Signs Temp Pulse Resp BP Pulse Ox O2 Del Method 96.1 F L 72 18 119/78 94 L Room Air 08/26/25 08:00 08/26/25 09:28 08/26/25 09:28 08/26/25 08:00 08/26/25 08:00 08/26/25 08:00 Narrative Exam General: Awake and in no acute distress. Neurologic: Mute. Follows commands. No gross neurological deficit, and patient able to move all 4 extremities. HEENT: Normocephalic, atraumatic, mucous membranes moist. Pupils reactive to light. Heart: Regular rate and rhythm, normal S1 and S2, no murmurs. Lungs: Clear to auscultation bilaterally with no wheezing or crackles. Abdomen: Soft, nondistended, nontender, positive bowel sounds. No guarding or rebound tenderness. Extremities: No edema. 2+ radial and dorsalis pedis pulses bilaterally. Skin: Warm. Dry. No rash or ecchymoses. Objective Labs 08/26/25 05:37 08/26/25 14:10 Labs: Laboratory Results - last 24 hr 08/25/25 08/25/25 08/25/25 16:50 17:10 19:08 WBC 18.2 H RBC 5.47 Hgb 15.8 Hct 46.9 MCV 86 MCH 28.9 MCHC 33.7 RDW Std Deviation 38.5 Plt Count 280 D Neut % (Auto) 87 H Lymph % (Auto) 8 L [place] % (Auto) 4 Eos % (Auto) 0 Baso % (Auto) 0 Neut # (Auto) 15.8 H Lymph # (Auto) 1.5 [place] # (Auto) 0.7 Eos # (Auto) 0.1 Baso # (Auto) 0.1 Immature Gran # (Auto) 0.13 H Absolute Nucleated RBC 0.00 Immature Gran % 1 H Nucleated RBC % 0 APTT 25.4 VBG pH 7.29 L VBG pCO2 29 L VBG pO2 50 VBG O2 Sat (Elijah) 84 L VBG Base Excess -11 L Sodium 139 Potassium 3.5 Chloride 100 Carbon Dioxide 13.8 L* Anion Gap 25 H BUN 14 Creatinine 1.3 Estim Creat Clear Calc 98.3 eGFR > 60 BUN/Creatinine Ratio 11 L Glucose [address] Glu mg/dL 97 Hemoglobin A1c 5.0 Calculated Osmolality 285 Lactic Acid 14.1 H* Calcium 9.7 Corrected Calcium 9.7 Phosphorus Magnesium 2.0 Total Bilirubin 0.3 AST 38 H ALT 75 H Alkaline Phosphatase 100 Ammonia 104 H* Total Creatine Kinase 982 H D Total Protein 7.4 Albumin 5.2 H Globulin 2.2 L Albumin/Globulin Ratio 2.4 H Triglycerides Cholesterol LDL Cholesterol, Calc HDL Cholesterol Cholesterol/HDL Ratio Beta-Hydroxybutyrate/Acetoacetate 0.2 Ur Collection Type Clean Catch Urine Color Colorless A Urine Clarity Clear Urine pH 6.0 Ur Specific [place] 1.008 Urine Protein Negative Urine Glucose (UA) Negative Urine Ketones Negative Urine Blood Negative Urine Nitrite Negative Urine Bilirubin Negative Urine Urobilinogen (Auto) Negative Ur Leukocyte Esterase Negative Urine RBC 1 Urine WBC < 1 Ur Squamous Epith Cells < 1 Urine Bacteria None Ur Culture Indicated? Not Indicated Urine Opiates Screen Negative Urine Fentanyl Screen Negative Ur Barbiturates Screen Negative U Amphetamin/Meth Scrn Negative U Benzodiazepines Scrn Negative U Cocaine Metab Screen Negative U Marijuana (THC) Screen Negative 08/25/25 08/25/25 08/26/25 19:25 23:08 05:37 WBC 8.8 D RBC 4.90 Hgb 14.5 Hct 41.9 MCV 86 MCH 29.6 MCHC 34.6 RDW Std Deviation 38.5 Plt Count 82 L D Neut % (Auto) 71 Lymph % (Auto) 20 [place] % (Auto) 8 Eos % (Auto) 1 Baso % (Auto) 0 Neut # (Auto) 6.2 Lymph # (Auto) 1.7 [place] # (Auto) 0.7 Eos # (Auto) 0.1 Baso # (Auto) 0.0 Immature Gran # (Auto) 0.03 H Absolute Nucleated RBC 0.00 Immature Gran % 0 Nucleated RBC % 0 APTT VBG pH 7.39 VBG pCO2 35 L VBG pO2 40 VBG O2 Sat (Elijah) 78 L VBG Base Excess -3 Sodium 141 141 Potassium 4.3 D 5.6 H D Chloride 108 H 108 H Carbon Dioxide 20.2 22.9 Anion Gap 13 10 BUN 8 L 7 L Creatinine 0.7 D 0.9 Estim Creat Clear Calc 182.5 139.7 eGFR > 60 > 60 BUN/Creatinine Ratio 11 L 8 L Glucose [address] Glu mg/dL Hemoglobin A1c Calculated Osmolality 278 279 Lactic Acid 7.1 H* 1.4 Calcium 8.7 8.6 Corrected Calcium 9.1 8.6 Phosphorus 1.3 L 4.2 Magnesium 2.0 Total Bilirubin 0.6 AST 88 H ALT 66 H Alkaline Phosphatase 63 D Ammonia Total Creatine Kinase > 1300 H D Total Protein 6.2 Albumin 3.5 D 4.4 D Globulin 1.8 L Albumin/Globulin Ratio 2.4 H Triglycerides 137 Cholesterol 176 LDL Cholesterol, Calc 107 HDL Cholesterol 42 Cholesterol/HDL Ratio 4.2 Beta-Hydroxybutyrate/Acetoacetate Ur Collection Type Urine Color Urine Clarity Urine pH Ur Specific [place] Urine Protein Urine Glucose (UA) Urine Ketones Urine Blood Urine Nitrite Urine Bilirubin Urine Urobilinogen (Auto) Ur Leukocyte Esterase Urine RBC Urine WBC Ur Squamous Epith Cells Urine Bacteria Ur Culture Indicated? Urine Opiates Screen Urine Fentanyl Screen Ur Barbiturates Screen U Amphetamin/Meth Scrn U Benzodiazepines Scrn U Cocaine Metab Screen U Marijuana (THC) Screen 08/26/25 08:45 WBC RBC Hgb Hct MCV MCH MCHC RDW Std Deviation Plt Count Neut % (Auto) Lymph % (Auto) [place] % (Auto) Eos % (Auto) Baso % (Auto) Neut # (Auto) Lymph # (Auto) [place] # (Auto) Eos # (Auto) Baso # (Auto) Immature Gran # (Auto) Absolute Nucleated RBC Immature Gran % Nucleated RBC % APTT VBG pH VBG pCO2 VBG pO2 VBG O2 Sat (Elijah) VBG Base Excess Sodium Potassium Chloride Carbon Dioxide Anion Gap BUN Creatinine Estim Creat Clear Calc eGFR BUN/Creatinine Ratio Glucose Estimated Ave Glu mg/dL Hemoglobin A1c Calculated Osmolality Lactic Acid Calcium Corrected Calcium Phosphorus Magnesium Total Bilirubin AST ALT Alkaline Phosphatase Ammonia < 10 L Total Creatine Kinase Total Protein Albumin Globulin Albumin/Globulin Ratio Triglycerides Cholesterol LDL Cholesterol, Calc HDL Cholesterol Cholesterol/HDL Ratio Beta-Hydroxybutyrate/Acetoacetate Ur Collection Type Urine Color Urine Clarity Urine pH Ur Specific [place] Urine Protein Urine Glucose (UA) Urine Ketones Urine Blood Urine Nitrite Urine Bilirubin Urine Urobilinogen (Auto) Ur Leukocyte Esterase Urine RBC Urine WBC Ur Squamous Epith Cells Urine Bacteria Ur Culture Indicated? Urine Opiates Screen Urine Fentanyl Screen Ur Barbiturates Screen U Amphetamin/Meth Scrn U Benzodiazepines Scrn U Cocaine Metab Screen U Marijuana (THC) Screen ABG Interpretation ABG results: 08/25/25 08/25/25 16:50 19:25 VBG pH 7.29 L 7.39 VBG pCO2 29 L 35 L VBG pO2 50 40 VBG Base Excess -11 L -3 Quality Measures Quality Measures VTE prophylaxis Assessment & Plan Assessment Current Active Medications: Generic Name Dose Route Start Last Admin Trade Name Freq PRN Reason Stop Dose Admin Acetaminophen 650 mg 08/25/25 21:41 Acetaminophen 325 Mg Tablet PO 09/24/25 21:40 Q6H PRN PAIN (1-3) OR FEVER > 100.4 Dextrose 25 ml 08/26/25 08:17 Dextrose 50%-Water Inj 50 Ml Syringe IV 09/25/25 08:16 Q15MIN PRN BG 50-70 responsive npo pt Dextrose 50 ml 08/26/25 08:17 Dextrose 50%-Water Inj 50 Ml Syringe IV 09/25/25 08:16 Q15MIN PRN BG <50 OR BG <70 & pt unresponsive Enoxaparin Sodium 40 mg 08/26/25 09:00 08/26/25 09:44 Enoxaparin Sod Inj 40 Mg/0.4 Ml Syringe SC 09/09/25 08:59 40 mg QDAY ISAIAS Administration Glucagon 1 mg 08/26/25 08:17 Glucagon Inj 1 Mg Vial IM Q15MIN PRN BG <70, and no IV access Dextrose 1,000 mls @ 100 mls/hr 08/26/25 08:30 08/26/25 09:44 D10w 1000 Ml IV 08/26/25 18:29 100 mls/hr .Q10H ISAIAS Administration Lactulose 10 gm 08/26/25 09:00 08/26/25 09:45 Lactulose Syrup 20 Gm/30 Ml Udc PO 09/25/25 08:59 10 gm BID ISAIAS Administration Protocol Lorazepam 2 mg 08/25/25 21:51 Lorazepam 2 Mg/Ml Vial IVP Q15MIN PRN seizure breakthrough Pantoprazole Sodium 40 mg 08/26/25 09:00 08/26/25 09:46 Pantoprazole 40 Mg Tablet PO 09/25/25 08:59 40 mg QDAY ISAIAS Administration Sennosides 1 tab 08/26/25 09:00 08/26/25 09:45 Senna Tablet PO 09/25/25 08:59 1 tab QDAY ISAIAS Administration Protocol Plan Summary: 25-year-old male with a history of developmental delay and intermittent explosive disorder presents to the ED after his caregiver noticed him pacing and sweating around 2 PM, along with a blank stare. Patient admitted for workup of potential seizure. #Acute encephalopathy secondary to suspected #Seizure #Intermittent explosive disorder #History of substance use #Elevated CK (Resolved) #Leukocytosis (Resolved) #Hypophosphatemia (Resolved) #Hyperammonemia (Resolved) * DDx metabolic vs infection vs seizures vs hypoxia * Patient is mute, was previously oriented to self, may be a behavioral issue * Patient denied any history of seizures, though he is pending a neurology evaluation * Caregiver reports that the patient has experienced similar episodes of blank staring in the past * Caregiver reports that the patient has intermittent explosive disorder and previous substance abuse * Caregiver reports that the patient has never had a formal evaluation by a psychiatrist * No source of infection * CMP showed hyperammonemia (104), resolved * No urinary/ bowel incontinence * WBC 18.2, afebrile, UA clear, WBC resolved * Head CT negative * CK greater than 1300 Plan * Neurology consulted, Dr. Kurtz * EEG ordered * MRI ordered * Lorazepam 2 mg IV for possible seizures * Potassium phosphate IV X1 for hypophosphatemia * Lactulose 10 g p.o. twice daily #Hyperkalemia (Resolved) * Potassium 5.6 Plan: * Patient received 5 units of insulin and dextrose Reassessment: * Repeat potassium 3.9 #Lactic acidosis (Resolved) * Initially presented with lactic acid of 14.2 but with aggressive IV fluids (4 L + maintenance 150cc/hr) now at normal range #Metabolic acidosis (Resolved) * Initially presented with bicarb of 13.8 with a repeat of 20.2 at normal range Health Maintenance: Diet: N.p.o. GI prophylaxis: None DVT prophylaxis: Lovenox Antibiotics: None CODE STATUS: Full Disposition: Telemetry, neuro consulted, started diet, hyperkalemia resolved, hyperammonemia resolved. Pending EEG and MRI. Patient was seen and discussed with my attending physician Dr. Mary Jo LAZARO and my senior resident Dr. Fabrice LAZARO PGY-2. Meño Butt DO PGY-1.
--- NOTE | 2025-08-26 14:26 | PC.SS ---
Rounding: Pending EEG and Neuro consult
[2025-08-26 14:45] LABS: Albumin, Serum 4.6 gm/dL (3.5-5.0); Anion Gap 11 (7-16); BUN/Creatinine Ratio 8 Ratio (12-20); Blood Urea Nitrogen 6 mg/dL (9-23); Calcium 9.1 mg/dL (8.3-10.6); Calcium (Corrected) 9.1 mg/dL (8.5-10.1); Carbon Dioxide 26.9 mMol/L (20.0-31.0); Chloride 105 mMol/L (98-107); Creatinine (Component) 0.8 mg/dL (0.6-1.3); Estimated Creatinine Clearance 157.1 mL/min (>60); Glucose 109 mg/dL (74-106); Osmolality,Calculated 283 (275-295); Phosphorous 3.6 mg/dL (2.4-5.1); Potassium 3.9 mMol/L (3.4-5.1); Sodium 143 mMol/L (136-145); eGFR > 60 See Note
--- NOTE | 2025-08-26 22:08 | PD.NEUROCONS ---
History of Present Illness Data of Consult Requesting Physician: Natalya Mayberry MD Primary Care Provider: Ronnie Son Consult Narrative History of present illness: 25-year-old male with a history of developmental delay and possible schizophrenia waiting to see sychiatrist presents to the ER after his caregiver noticed him pacing and sweating around 2 PM. After showering, the patient appeared pale with a blank stare, was rocking, shaking, and had an elevated heart rate. He denies any history of seizures, though he is pending a neurology evaluation. The caregiver reports that the patient has experienced similar episodes of blank staring in the past. The patient selectively communicates. Workup in the ER: Initial vitals include T 98.3, BP 150/91, HR 132, RR 24, O2 sat 95% room air. Initial labs showed white blood cell count 18.2, pH 7.29 (with repeat at 7.39), sodium 141, potassium 4.3, bicarbonate 13.8 (repeat 20.2), creatinine 1.3 (repeat 0.7), lactic acid 14.1 (repeat 7.1), phosphorus 1.3, and ammonia 104. Head CT, toxicology screen, urinalysis, and urine drug screen were all negative. EKG showed sinus tachycardia with a heart rate of 109 and a QTc of 438 ms. In ER patient received lorazepam 2 mg IV x 1, Benadryl 50 mg IV x 1, and 4 L of IV fluids. Neurology was consulted to evaluate further. cc:: cc: Natalya Mayberry MD Meds Home Medications and Allergies Home Medications ?Medication ?Instructions ?Recorded ?Confirmed ?Type acetaminophen 500 mg tablet (Pain 500 mg PO Q6H PRN fever or pain 08/08/25 08/25/25 History Relief (acetaminophen)) famotidine 20 mg tablet 20 mg PO BID 08/08/25 08/25/25 History loperamide 2 mg capsule 2 mg PO Q6H PRN loose stool 08/08/25 08/25/25 History loratadine 10 mg tablet 10 mg PO Q24H PRN allergy symptoms 08/08/25 08/25/25 History lorazepam 1 mg tablet 0.5 mg PO Q8H PRN agitation 08/08/25 08/25/25 History melatonin 3 mg capsule 3 mg PO HS 08/08/25 08/25/25 History menthol 0.44 %-zinc oxide 20.6 % 1 applic topical BID PRN wound 08/08/25 08/25/25 History topical ointment (Calmoseptine) healing multivitamin (One Daily 1 tab PO DAILY 08/08/25 08/25/25 History Multivitamin tablet) polyethylene glycol 3350 17 17 g PO .q2day PRN constipation 08/08/25 08/25/25 History gram/dose oral powder (ClearLax) risperidone 1 mg tablet 1 mg PO .am 08/08/25 08/25/25 History risperidone 2 mg tablet 2 mg PO BID 08/08/25 08/25/25 History sennosides 8.6 mg tablet (senna) 8.6 mg PO HS 08/08/25 08/25/25 History Allergies Allergy/AdvReac Type Severity Reaction Status Date / Time No Known Allergies Allergy Verified 08/25/25 15:38 Exam - Neurology Vital Signs Temp Pulse Resp BP Pulse Ox O2 Del Method 97.1 F 89 20 94/65 95 Room Air 08/26/25 20:00 08/26/25 20:00 08/26/25 20:00 08/26/25 20:00 08/26/25 20:00 08/26/25 20:00 Narrative Exam GENERAL APPEARANCE: Well hydrated, well-nourished in no acute distress. HEENT: Normocephalic, atraumatic, extraocular movements intact. Pupils: Equal reacting to light and accommodation NECK: Supple, no JVD or bruits. CARDIOVASULAR: Heart: S1, S2 heard, regular without S3-S4 or murmur no rubs or gallops. LUNGS/CHEST: Clear to auscultation bilaterally. No rails, rhonchi, or wheezing. Normal inspection. ABDOMEN: Soft, nontender, with normal bowel sounds. No pulsatile masses. No rebound, rigidity, or guarding. Normal inspection and palpation. EXTREMITIES: Normal inspection and palpation. No edema, clubbing or cyanosis. SKIN: Warm and dry without rashes. Normal inspection. MUSCULOSKELETAL: No cervical, thoracic, lumbar or midline bony tenderness. Normal inspection. NEURO: Alert, awake . Cranial nerves: II through XII grossly intact. Speech and language: Nonverbal; motor system: Tone and bulk: Normal: Strength: 5 out of 5 in all 4 extremities; No pronator drift noted. Deep tendon reflexes: 2+ bilaterally symmetrical. Plantar reflex: Downgoing bilaterally. Sensory system: Intact to all modalities of sensation bilaterally. Coordination: Intact to [id number] and [id number] test bilaterally. No ataxia, no dysmetria, or dysdiadochokinesia noted. No intention tremors noted. Gait: Normal. Toe, heel, tandem walk all are normal. Romberg: Negative. No signs of meningeal irritation noted. PSYCHIATRIC: Normal mood and affect. Results Labs 08/26/25 05:37 08/26/25 14:10 Labs: Short CBC 08/26/25 Range/Units 05:37 WBC 8.8 D (3.8-10.6) Thou/mm3 Hgb 14.5 (13.5-16.0) g/dL Hct 41.9 (41.0-53.0) % Plt Count 82 L D (140-440) Thou/mm3 BMP 08/26/25 08/26/25 05:37 14:10 Sodium 141 143 Potassium 5.6 H D 3.9 D Chloride 108 H 105 Carbon Dioxide 22.9 26.9 BUN 7 L 6 L Creatinine 0.9 0.8 Glucose 96 109 H Calcium 8.6 9.1 Cardiac Enzymes 08/26/25 Range/Units 05:37 Total Creatine Kinase > 1300 H D (34-171) U/L Liver Function 08/26/25 08/26/25 Range/Units 05:37 14:10 Total Bilirubin 0.6 (0.3-1.2) mg/dL AST 88 H (0-34) U/L ALT 66 H (10-49) U/L Alkaline Phosphatase 63 D (46-116) U/L Albumin 4.4 D 4.6 (3.5-5.0) gm/dL ABG Interpretation ABG results: 08/25/25 08/25/25 16:50 19:25 VBG pH 7.29 L 7.39 VBG pCO2 29 L 35 L VBG pO2 50 40 VBG Base Excess -11 L -3 Assessment & Plan Assessment and plan (1) New onset seizure without head trauma: Status: Acute Assessment and plan: Follow-up with EEG and MRI brain with and without contrast. Follow seizure precautions and consider starting antiepileptic drug after the workup is complete at least EEG.
[2025-08-26] MEDS: ACETAMINOPHEN 325 MG TABLET 650 MG PO (22:11)
[2025-08-27] VITALS (9 sets, daily range): BP systolic 111–131; BP diastolic 65–86; PULSE 72–96; RESP 16–98; TEMP 35.9–36.4; O2SAT 95–99; BMI 37.4
[2025-08-27 05:46] LABS: Basophils # (Auto) 0.0 Thou/mm3 (0.0-0.2); Basophils % (Auto) 0 % (0-2.5); Eosinophils # (Auto) 0.2 Thou/mm3 (0.0-0.5); Eosinophils % (Auto) 2 % (0-10); Hematocrit 43.6 % (41.0-53.0); Hemoglobin 14.7 g/dL (13.5-16.0); Immature Granulocytes Auto 0.03 Thou/mm3 (0.00-0.00); Lymphocytes # (Auto) 1.5 Thou/mm3 (1.0-4.8); Lymphocytes % (Auto) 16 % (10-50); Mean Corpuscular HGB Conc 33.7 g/dl (31.0-37.0); Mean Corpuscular Hemoglobin 29.0 pg (25.0-35.0); Mean Corpuscular Volume 86 fL (80-100); Monocytes # (Auto) 0.7 Thou/mm3 (0.0-0.8); Monocytes % (Auto) 7 % (0-12); Neutrophils # (Auto) 7.3 Thou/mm3 (1.8-7.7); Neutrophils % (Auto) 75 % (37-80); Nucleated Red Blood Cell # 0.00 Thou/mm3 (0.00-0.00); Nucleated Red Blood Cell % 0 /100 WBC (0); Platelet Count 254 Thou/mm3 (140-440); RDW Standard Deviation 38.9 fL (35.1-43.9); Red Blood Count 5.07 Miln/mm3 (4.50-5.90); White Blood Count 9.8 Thou/mm3 (3.8-10.6)
[2025-08-27 06:30] LABS: Alanine Aminotransferase 67 U/L (10-49); Albumin, Serum 4.7 gm/dL (3.5-5.0); Albumin/Globulin Ratio 2.2 (1.2-2.2); Alkaline Phosphatase 76 U/L (46-116); Anion Gap 11 (7-16); Aspartate Amino Transferase 52 U/L (0-34); BUN/Creatinine Ratio 7 Ratio (12-20); Bilirubin,Total 0.6 mg/dL (0.3-1.2); Blood Urea Nitrogen 6 mg/dL (9-23); Calcium 9.6 mg/dL (8.3-10.6); Calcium (Corrected) 9.6 mg/dL (8.5-10.1); Carbon Dioxide 27.4 mMol/L (20.0-31.0); Chloride 104 mMol/L (98-107); Creatinine (Component) 0.9 mg/dL (0.6-1.3); Estimated Creatinine Clearance 140.3 mL/min (>60); Globulin 2.1 gm/dL (2.3-3.5); Glucose 97 mg/dL (74-106); Osmolality,Calculated 280 (275-295); Potassium 4.1 mMol/L (3.4-5.1); Sodium 142 mMol/L (136-145); Total Protein 6.8 gm/dL (5.7-8.2); eGFR > 60 See Note
[2025-08-27] MEDS: LACTULOSE SYRUP 20 GM/30 ML UDC 10 GM PO (08:42)
[2025-08-27] MEDS: ENOXAPARIN SOD INJ 40 MG/0.4 ML SYRINGE SC (08:43)
[2025-08-27] MEDS: PANTOPRAZOLE 40 MG TABLET PO (08:43)
--- NOTE | 2025-08-27 10:38 | ESPR_ITS ---
<Statement entered by Daphne Camargo MD - 09/05/25 08:33> I reviewed above note and agree with findings and plans. I have also personally examined the patient with medicine team and went over assessment and plan with medical team including international accountant and resident physician. <Statement entered by Sheela Avina MD - 08/27/25 16:24> Pt is seen at bedside, currently eating breakfast and has no new complaints. Caregiver is at bedside, who is updated of the plan. Pt is pending MRI of brain and EEG. Patient was seen and examined by me personally. I have directly supervised and reviewed documentation by the team resident and agree with its findings. ------- Plan of care was discussed with the attending, Dr. Mary Jo Avina, PGY-2 Documentation for date of: 08/27/25 Subjective Subjective Interval history: * Patient seen and examined at bedside. * Pending EEG. * Pending MRI. * To the studies, will consider starting antiepileptic. Exam Vital Signs Temp Pulse Resp BP Pulse Ox O2 Del Method 96.6 F L 89 19 123/84 98 Room Air 08/27/25 08:00 08/27/25 08:08 08/27/25 08:08 08/27/25 08:00 08/27/25 08:00 08/27/25 08:00 Narrative Exam General: Awake and in no acute distress. Neurologic: Mute. Follows commands. No gross neurological deficit, and patient able to move all 4 extremities. HEENT: Normocephalic, atraumatic, mucous membranes moist. Pupils reactive to light. Heart: Regular rate and rhythm, normal S1 and S2, no murmurs. Lungs: Clear to auscultation bilaterally with no wheezing or crackles. Abdomen: Soft, nondistended, nontender, positive bowel sounds. No guarding or rebound tenderness. Extremities: No edema. 2+ radial and dorsalis pedis pulses bilaterally. Skin: Warm. Dry. No rash or ecchymoses. Objective Labs 08/27/25 05:05 08/27/25 05:05 Labs: Laboratory Results - last 24 hr 08/26/25 08/27/25 14:10 05:05 WBC 9.8 RBC 5.07 Hgb 14.7 Hct 43.6 MCV 86 MCH 29.0 MCHC 33.7 RDW Std Deviation 38.9 Plt Count 254 D Neut % (Auto) 75 Lymph % (Auto) 16 [place] % (Auto) 7 Eos % (Auto) 2 Baso % (Auto) 0 Neut # (Auto) 7.3 Lymph # (Auto) 1.5 [place] # (Auto) 0.7 Eos # (Auto) 0.2 Baso # (Auto) 0.0 Immature Gran # (Auto) 0.03 H Absolute Nucleated RBC 0.00 Immature Gran % 0 Nucleated RBC % 0 Sodium 143 142 Potassium 3.9 D 4.1 Chloride 105 104 Carbon Dioxide 26.9 27.4 Anion Gap 11 11 BUN 6 L 6 L Creatinine 0.8 0.9 Estim Creat Clear Calc 157.1 140.3 eGFR > 60 > 60 BUN/Creatinine Ratio 8 L 7 L Glucose 109 H 97 Calculated Osmolality 283 280 Calcium 9.1 9.6 Corrected Calcium 9.1 9.6 Phosphorus 3.6 Total Bilirubin 0.6 AST 52 H ALT 67 H Alkaline Phosphatase 76 D Total Protein 6.8 Albumin 4.6 4.7 Globulin 2.1 L Albumin/Globulin Ratio 2.2 ABG Interpretation ABG results: 08/25/25 08/25/25 16:50 19:25 VBG pH 7.29 L 7.39 VBG pCO2 29 L 35 L VBG pO2 50 40 VBG Base Excess -11 L -3 Quality Measures Quality Measures VTE prophylaxis Assessment & Plan Assessment Current Active Medications: Generic Name Dose Route Start Last Admin Trade Name Freq PRN Reason Stop Dose Admin Acetaminophen 650 mg 08/25/25 21:41 08/26/25 22:11 Acetaminophen 325 Mg Tablet PO 09/24/25 21:40 650 mg Q6H PRN Administration PAIN (1-3) OR FEVER > 100.4 Dextrose 25 ml 08/26/25 08:17 Dextrose 50%-Water Inj 50 Ml Syringe IV 09/25/25 08:16 Q15MIN PRN BG 50-70 responsive npo pt Dextrose 50 ml 08/26/25 08:17 Dextrose 50%-Water Inj 50 Ml Syringe IV 09/25/25 08:16 Q15MIN PRN BG <50 OR BG <70 & pt unresponsive Enoxaparin Sodium 40 mg 08/26/25 09:00 08/27/25 08:43 Enoxaparin Sod Inj 40 Mg/0.4 Ml Syringe SC 09/09/25 08:59 40 mg QDAY ISAIAS Administration Glucagon 1 mg 08/26/25 08:17 Glucagon Inj 1 Mg Vial IM Q15MIN PRN BG <70, and no IV access Lactulose 10 gm 08/26/25 09:00 08/27/25 08:42 Lactulose Syrup 20 Gm/30 Ml Udc PO 09/25/25 08:59 10 gm BID ISAIAS Administration Protocol Lorazepam 2 mg 08/25/25 21:51 Lorazepam 2 Mg/Ml Vial IVP Q15MIN PRN seizure breakthrough Pantoprazole Sodium 40 mg 08/26/25 09:00 08/27/25 08:43 Pantoprazole 40 Mg Tablet PO 09/25/25 08:59 40 mg QDAY ISAIAS Administration Sennosides 1 tab 08/26/25 09:00 08/27/25 08:43 Senna Tablet PO 09/25/25 08:59 1 tab QDAY ISAIAS Administration Protocol Plan Summary: 25-year-old male with a history of developmental delay and intermittent explosive disorder presents to the ED after his caregiver noticed him pacing and sweating around 2 PM, along with a blank stare. Patient admitted for workup of potential seizure. #Acute encephalopathy secondary to suspected #Seizure #Intermittent explosive disorder #History of substance use #Elevated CK (Resolved) #Leukocytosis (Resolved) #Hypophosphatemia (Resolved) #Hyperammonemia (Resolved) * DDx metabolic vs infection vs seizures vs hypoxia * Patient is mute, was previously oriented to self, may be a behavioral issue * Patient denied any history of seizures, though he is pending a neurology evaluation * Caregiver reports that the patient has experienced similar episodes of blank staring in the past * Caregiver reports that the patient has intermittent explosive disorder and previous substance abuse * Caregiver reports that the patient has never had a formal evaluation by a psychiatrist * No source of infection * CMP showed hyperammonemia (104), resolved * No urinary/ bowel incontinence * WBC 18.2, afebrile, UA clear, WBC resolved * Head CT negative * CK greater than 1300 Plan * Neurology consulted, Dr. Kurtz * EEG ordered * MRI ordered * Lorazepam 2 mg IV for possible seizures * Potassium phosphate IV X1 for hypophosphatemia * Lactulose 10 g p.o. twice daily #Hyperkalemia (Resolved) * Potassium stable #Lactic acidosis (Resolved) * Initially presented with lactic acid of 14.2 but with aggressive IV fluids (4 L + maintenance 150cc/hr) now at normal range #Metabolic acidosis (Resolved) * Initially presented with bicarb of 13.8 with a repeat of 20.2 at normal range Health Maintenance: Diet: N.p.o. GI prophylaxis: None DVT prophylaxis: Lovenox Antibiotics: None CODE STATUS: Full Disposition: Telemetry, neuro consulted. Pending EEG and MRI, from there we will consider starting antiepileptic. Patient was seen and discussed with my attending physician Dr. Mary Jo LAZARO and my senior resident Dr. Fabrice LAZARO PGY-2. Meño Butt DO PGY-1.
--- NOTE | 2025-08-27 16:13 | PC.SS ---
Dialysis Clinical Manager (DIMAS Goldstein met with the patient and caregiver, Skye, at bedside to complete an initial assessment and discuss a discharge plan. Patient refused to participate in the assessment; the assessment was completed with the caregiver. Patient is Con Valdovinos, 25 y/o Tristanian-speaking male residing at [facility], [address] [place] [address]. Patient surrogate medical decision maker is [facility], manager compliance, Juan R Pardo, . Per the caregiver, the patient at baseline is independent and able to attend to his ADLs, guided. The patient's PCP is Dr. Gant. Patient's d/c plan is back to the [facility], and the [facility] will provide transportation. Patient is not conserved. Patient has no family involvement. Surrogate medical decision maker: DUC BONILLA, . deputy administrator, Manjula Pa, Discharge plan: [facility]. Discharge round: Pending MRI/EEG and Neuro recs?D/c [facility].
--- NOTE | 2025-08-27 23:52 | PD.VPROG1 ---
Telemedicine visit statement This visit was conducted with the use of interactive audio and video telecommunications system that permits real time communication between the patient and the provider. Patient's verbal consent for virtual visit was obtained on 08/27/25 at 2352. Documentation for date of: 08/27/25 Virtual exam Vital Signs Temp Pulse Resp BP Pulse Ox O2 Del Method 97.0 F 81 19 122/81 99 Room Air 08/27/25 20:00 08/27/25 20:59 08/27/25 20:59 08/27/25 20:00 08/27/25 20:00 08/27/25 20:00 Objective Labs 08/27/25 05:05 08/27/25 05:05 Labs: Laboratory Results - last 24 hr 08/27/25 05:05 WBC 9.8 RBC 5.07 Hgb 14.7 Hct 43.6 MCV 86 MCH 29.0 MCHC 33.7 RDW Std Deviation 38.9 Plt Count 254 D Neut % (Auto) 75 Lymph % (Auto) 16 [place] % (Auto) 7 Eos % (Auto) 2 Baso % (Auto) 0 Neut # (Auto) 7.3 Lymph # (Auto) 1.5 [place] # (Auto) 0.7 Eos # (Auto) 0.2 Baso # (Auto) 0.0 Immature Gran # (Auto) 0.03 H Absolute Nucleated RBC 0.00 Immature Gran % 0 Nucleated RBC % 0 Sodium 142 Potassium 4.1 Chloride 104 Carbon Dioxide 27.4 Anion Gap 11 BUN 6 L Creatinine 0.9 Estim Creat Clear Calc 140.3 eGFR > 60 BUN/Creatinine Ratio 7 L Glucose 97 Calculated Osmolality 280 Calcium 9.6 Corrected Calcium 9.6 Total Bilirubin 0.6 AST 52 H ALT 67 H Alkaline Phosphatase 76 D Total Protein 6.8 Albumin 4.7 Globulin 2.1 L Albumin/Globulin Ratio 2.2 ABG Interpretation ABG results: 08/25/25 08/25/25 16:50 19:25 VBG pH 7.29 L 7.39 VBG pCO2 29 L 35 L VBG pO2 50 40 VBG Base Excess -11 L -3
[2025-08-28] VITALS (8 sets, daily range): BP systolic 100–144; BP diastolic 61–81; PULSE 63–103; RESP 15–98; TEMP 36.1–36.4; O2SAT 96–99; BMI 37.4
--- NOTE | 2025-08-28 | XR_ITS ---
Examination: MRI of brain without intravenous contrast. MRI brain with intravenous contrast. Date and time of exam: August 28, 2025, 0953 hours INDICATIONS: Diagnosis schizophrenia, diaphoresis, altered mental status, tachycardia, seizure history months Technique: Multiple axial and sagittal images of the brain to been obtained. Siemens high-resolution 1.52 Debra short bore scanner utilized. Sagittal sections, T1 weighted images, TR 500, TE 14, are performed. Axial sections proton-density and T2-weighted images have been obtained. Inversion recovery axial images, TR 9260, TE 111, TR 2500. Diffusion weighted images, axial sections, TR 4800, TE 128, B value 1000. Axial sections, ADC map, TR 4800, TE 128. Axial and coronal images were also obtained post 20 cc gadolinium administered intravenously. Findings:: Enlargement of the sella turcica is not present. The optic chiasm and infundibular stalk are not remarkable. There is no localized enlargement of the medulla or carmen. Fourth ventricle and cerebellar tonsils appear normal in position. No subacute area of hemorrhage density is seen. Fourth ventricle is midline. Mass in the cerebellopontine angle region is not evident. 7th and 8th nerve complexes exhibit symmetry Globes are symmetrical Orbital musculature including medial lateral rectus muscles do not exhibit abnormality Increased white matter signal is not seen Effacement of the cortical sulcal markings is not identified. Mass effect upon the ventricular system is not identified. Diffusion-weighted images demonstrate no focus of restricted diffusion Contrast images demonstrate no abnormal contrast enhancement Impression: Negative for acute hemorrhage mass effect or midline shift No acute infarct No MR findings diagnostic for demyelinating disease
--- NOTE | 2025-08-28 07:33 | ESPR_ITS ---
<Statement entered by Daphne Camargo MD - 09/05/25 08:39> I reviewed above note and agree with findings and plans. I have also personally examined the patient with medicine team and went over assessment and plan with medical team including rn internal medicine and resident physician. <Statement entered by Sheela Avina MD - 08/29/25 08:22> Pt is seen at bedside, no new complaints. Pt is pending EEG and final neurology recommendations. MRI is negative Patient was seen and examined by me personally. I have directly supervised and reviewed documentation by the team resident and agree with its findings. ------- Plan of care was discussed with the attending, Dr. Mary Jo Avina, PGY-2 Documentation for date of: 08/28/25 Subjective Subjective Interval history: * Patient seen and examined at bedside. * MRI of the brain negative. * EEG planned for today Exam Vital Signs Temp Pulse Resp BP Pulse Ox O2 Del Method 97.1 F 89 16 100/61 99 Room Air 08/28/25 04:00 08/28/25 07:15 08/28/25 04:00 08/28/25 04:00 08/28/25 04:00 08/28/25 04:00 Narrative Exam General: Awake and in no acute distress. Neurologic: Mute. Follows commands. No gross neurological deficit, and patient able to move all 4 extremities. HEENT: Normocephalic, atraumatic, mucous membranes moist. Pupils reactive to light. Heart: Regular rate and rhythm, normal S1 and S2, no murmurs. Lungs: Clear to auscultation bilaterally with no wheezing or crackles. Abdomen: Soft, nondistended, nontender, positive bowel sounds. No guarding or rebound tenderness. Extremities: No edema. 2+ radial and dorsalis pedis pulses bilaterally. Skin: Warm. Dry. No rash or ecchymoses. Objective Labs 08/28/25 07:38 08/28/25 07:38 ABG Interpretation ABG results: 08/25/25 08/25/25 16:50 19:25 VBG pH 7.29 L 7.39 VBG pCO2 29 L 35 L VBG pO2 50 40 VBG Base Excess -11 L -3 Quality Measures Quality Measures VTE prophylaxis Assessment & Plan Assessment Current Active Medications: Generic Name Dose Route Start Last Admin Trade Name Freq PRN Reason Stop Dose Admin Acetaminophen 650 mg 08/25/25 21:41 08/26/25 22:11 Acetaminophen 325 Mg Tablet PO 09/24/25 21:40 650 mg Q6H PRN Administration PAIN (1-3) OR FEVER > 100.4 Dextrose 25 ml 08/26/25 08:17 Dextrose 50%-Water Inj 50 Ml Syringe IV 09/25/25 08:16 Q15MIN PRN BG 50-70 responsive npo pt Dextrose 50 ml 08/26/25 08:17 Dextrose 50%-Water Inj 50 Ml Syringe IV 09/25/25 08:16 Q15MIN PRN BG <50 OR BG <70 & pt unresponsive Enoxaparin Sodium 40 mg 08/26/25 09:00 08/27/25 08:43 Enoxaparin Sod Inj 40 Mg/0.4 Ml Syringe SC 09/09/25 08:59 40 mg QDAY ISAIAS Administration Glucagon 1 mg 08/26/25 08:17 Glucagon Inj 1 Mg Vial IM Q15MIN PRN BG <70, and no IV access Lactulose 10 gm 08/26/25 09:00 08/27/25 19:59 Lactulose Syrup 20 Gm/30 Ml Udc PO 09/25/25 08:59 Not Given BID ISAIAS Protocol Lorazepam 2 mg 08/25/25 21:51 Lorazepam 2 Mg/Ml Vial IVP Q15MIN PRN seizure breakthrough Pantoprazole Sodium 40 mg 08/26/25 09:00 08/27/25 08:43 Pantoprazole 40 Mg Tablet PO 09/25/25 08:59 40 mg QDAY ISAIAS Administration Sennosides 1 tab 08/26/25 09:00 08/27/25 08:43 Senna Tablet PO 09/25/25 08:59 1 tab QDAY ISAIAS Administration Protocol Plan Summary: 25-year-old male with a history of developmental delay and intermittent explosive disorder presents to the ED after his caregiver noticed him pacing and sweating around 2 PM, along with a blank stare. Patient admitted for workup of potential seizure. #Acute encephalopathy secondary to suspected #Seizure #Intermittent explosive disorder #History of substance use #Elevated CK (Resolved) #Leukocytosis (Resolved) #Hypophosphatemia (Resolved) #Hyperammonemia (Resolved) * DDx metabolic vs infection vs seizures vs hypoxia * Patient is mute, was previously oriented to self, may be a behavioral issue * Patient denied any history of seizures, though he is pending a neurology evaluation * Caregiver reports that the patient has experienced similar episodes of blank staring in the past * Caregiver reports that the patient has intermittent explosive disorder and previous substance abuse * Caregiver reports that the patient has never had a formal evaluation by a psychiatrist * No source of infection * CMP showed hyperammonemia (104), resolved * No urinary/bowel incontinence * WBC 18.2, afebrile, UA clear, WBC resolved * Head CT negative * CK greater than 1300 * MRI of the head negative * Elevated CK, WBC, and electrolyte abnormalities may reinforce evidence of seizure activity on arrival Plan * Neurology consulted, Dr. Kurtz * EEG ordered * Lorazepam 2 mg IV as needed for possible seizures #Hyperkalemia (Resolved) * Potassium stable #Lactic acidosis (Resolved) * Initially presented with lactic acid of 14.2 but with aggressive IV fluids (4 L + maintenance 150cc/hr) now at normal range #Metabolic acidosis (Resolved) * Initially presented with bicarb of 13.8 with a repeat of 20.2 at normal range Health Maintenance: Diet: Carb consistent GI prophylaxis: None DVT prophylaxis: Lovenox Antibiotics: None CODE STATUS: Full Disposition: Telemetry. MRI negative. EEG pending. Patient was seen and discussed with my attending physician Dr. Mary Jo LAZARO and my senior resident Dr. Fabrice LAZARO PGY-2. Meño Butt DO PGY-1.
[2025-08-28] MEDS: PANTOPRAZOLE 40 MG TABLET PO (08:18)
[2025-08-28] MEDS: ENOXAPARIN SOD INJ 40 MG/0.4 ML SYRINGE SC (08:19)
[2025-08-28 09:10] LABS: Basophils # (Auto) 0.1 Thou/mm3 (0.0-0.2); Basophils % (Auto) 0 % (0-2.5); Eosinophils # (Auto) 0.9 Thou/mm3 (0.0-0.5); Eosinophils % (Auto) 8 % (0-10); Hematocrit 46.4 % (41.0-53.0); Hemoglobin 15.9 g/dL (13.5-16.0); Immature Granulocytes Auto 0.05 Thou/mm3 (0.00-0.00); Lymphocytes # (Auto) 1.7 Thou/mm3 (1.0-4.8); Lymphocytes % (Auto) 14 % (10-50); Mean Corpuscular HGB Conc 34.3 g/dl (31.0-37.0); Mean Corpuscular Hemoglobin 29.6 pg (25.0-35.0); Mean Corpuscular Volume 86 fL (80-100); Monocytes # (Auto) 0.9 Thou/mm3 (0.0-0.8); Monocytes % (Auto) 8 % (0-12); Neutrophils # (Auto) 8.3 Thou/mm3 (1.8-7.7); Neutrophils % (Auto) 70 % (37-80); Nucleated Red Blood Cell # 0.00 Thou/mm3 (0.00-0.00); Nucleated Red Blood Cell % 0 /100 WBC (0); Platelet Count 253 Thou/mm3 (140-440); RDW Standard Deviation 39.1 fL (35.1-43.9); Red Blood Count 5.38 Miln/mm3 (4.50-5.90); White Blood Count 11.9 Thou/mm3 (3.8-10.6)
[2025-08-28 09:20] LABS: Alanine Aminotransferase 72 U/L (10-49); Albumin, Serum 5.0 gm/dL (3.5-5.0); Albumin/Globulin Ratio 2.2 (1.2-2.2); Alkaline Phosphatase 84 U/L (46-116); Anion Gap 10 (7-16); Aspartate Amino Transferase 46 U/L (0-34); BUN/Creatinine Ratio 10 Ratio (12-20); Bilirubin,Total 0.7 mg/dL (0.3-1.2); Blood Urea Nitrogen 10 mg/dL (9-23); Calcium 9.7 mg/dL (8.3-10.6); Calcium (Corrected) 9.7 mg/dL (8.5-10.1); Carbon Dioxide 26.7 mMol/L (20.0-31.0); Chloride 105 mMol/L (98-107); Creatinine (Component) 1.0 mg/dL (0.6-1.3); Estimated Creatinine Clearance 126.3 mL/min (>60); Globulin 2.3 gm/dL (2.3-3.5); Glucose 99 mg/dL (74-106); Osmolality,Calculated 282 (275-295); Potassium 4.2 mMol/L (3.4-5.1); Sodium 142 mMol/L (136-145); Total Protein 7.3 gm/dL (5.7-8.2); eGFR > 60 See Note
--- NOTE | 2025-08-28 12:12 | PC.SS ---
rounding note: Pending EEG and MRI then d/c back to [facility].
--- NOTE | 2025-08-28 20:28 | PD.RESPRO ---
Documentation for date of: 08/28/25 Subjective Subjective Interval history: Patient seen and examined at bedside, appears stable, following commands and positive affect. Patient was able to ambulate comfortably in the telemetry called her daughter without assistance. Recommend to continue ambulation. MRI negative, EEG completed, neurology will read today and provide primary team with recommendations. If EEG negative, patient is safe to be discharged from neurology standpoint. Exam Vital Signs Temp Pulse Resp BP Pulse Ox O2 Del Method 96.9 F 96 18 118/78 96 Room Air 08/28/25 16:00 08/28/25 16:00 08/28/25 16:00 08/28/25 16:00 08/28/25 16:00 08/28/25 16:00 Narrative Exam Constitutional Alert, oriented x2 (baseline), following commands HEENT Vision grossly intact, PERRLA. Patent nares. Trachea midline. Respiratory Chest normal on inspection and clear to auscultation bilaterally. Cardiovascular S1 and S2 audible, RRR. No murmurs or carotid bruit. No gross JVD. Abdominal Soft and BS + ; non tender to palpation in all quadrants. Genitourinary No bladder tenderness, no flank pain. Normal to palpation. Musculoskeletal Extremities tone within normal limits. No LE edema. Neurological CN II - XII grossly intact. Extremity motor and sensation grossly intact. Skin Warm, dry and intact. No apparent lesions. Psychiatric Patient has a good affect, is cooperative. Objective Labs 08/28/25 07:38 08/28/25 07:38 Labs: Laboratory Results - last 24 hr 08/28/25 07:38 WBC 11.9 H RBC 5.38 Hgb 15.9 Hct 46.4 MCV 86 MCH 29.6 MCHC 34.3 RDW Std Deviation 39.1 Plt Count 253 Neut % (Auto) 70 Lymph % (Auto) 14 [place] % (Auto) 8 Eos % (Auto) 8 Baso % (Auto) 0 Neut # (Auto) 8.3 H Lymph # (Auto) 1.7 [place] # (Auto) 0.9 H Eos # (Auto) 0.9 H Baso # (Auto) 0.1 Immature Gran # (Auto) 0.05 H Absolute Nucleated RBC 0.00 Immature Gran % 0 Nucleated RBC % 0 Sodium 142 Potassium 4.2 Chloride 105 Carbon Dioxide 26.7 Anion Gap 10 BUN 10 Creatinine 1.0 Estim Creat Clear Calc 126.3 eGFR > 60 BUN/Creatinine Ratio 10 L Glucose 99 Calculated Osmolality 282 Calcium 9.7 Corrected Calcium 9.7 Total Bilirubin 0.7 AST 46 H ALT 72 H Alkaline Phosphatase 84 Total Protein 7.3 Albumin 5.0 Globulin 2.3 Albumin/Globulin Ratio 2.2 ABG Interpretation ABG results: 08/25/25 08/25/25 16:50 19:25 VBG pH 7.29 L 7.39 VBG pCO2 29 L 35 L VBG pO2 50 40 VBG Base Excess -11 L -3 Quality Measures Quality Measures VTE prophylaxis Assessment & Plan Assessment Current Active Medications: Generic Name Dose Route Start Last Admin Trade Name Freq PRN Reason Stop Dose Admin Acetaminophen 650 mg 08/25/25 21:41 08/26/25 22:11 Acetaminophen 325 Mg Tablet PO 09/24/25 21:40 650 mg Q6H PRN Administration PAIN (1-3) OR FEVER > 100.4 Dextrose 25 ml 08/26/25 08:17 Dextrose 50%-Water Inj 50 Ml Syringe IV 09/25/25 08:16 Q15MIN PRN BG 50-70 responsive npo pt Dextrose 50 ml 08/26/25 08:17 Dextrose 50%-Water Inj 50 Ml Syringe IV 09/25/25 08:16 Q15MIN PRN BG <50 OR BG <70 & pt unresponsive Enoxaparin Sodium 40 mg 08/26/25 09:00 08/28/25 08:19 Enoxaparin Sod Inj 40 Mg/0.4 Ml Syringe SC 09/09/25 08:59 40 mg QDAY ISAIAS Administration Glucagon 1 mg 08/26/25 08:17 Glucagon Inj 1 Mg Vial IM Q15MIN PRN BG <70, and no IV access Lorazepam 2 mg 08/25/25 21:51 Lorazepam 2 Mg/Ml Vial IVP Q15MIN PRN seizure breakthrough Sennosides 1 tab 08/26/25 09:00 08/28/25 08:19 Senna Tablet PO 09/25/25 08:59 1 tab QDAY ISAIAS Administration Protocol Plan New onset seizure without trauma Hx of schizophrenia Recommendations: - Patient is a CV client to follow-up with him regularly at home. He is not currently in a day program. - MRI brain negative for any acute findings - EEG completed, to be read today. Primary team to follow-up with recommendations on 08/29/2025 prior to discharge - Follow seizure precautions and continue home medications - If EEG negative, patient is safe to be discharged from neurology standpoint Other medical problems to be managed as per primary team recommendations Thank you for the consult. Neurology will continue to follow the case with you Plan of care discussed with attending Neurologist Dr Kurtz, - James Balbuena M.D. PGY3 Disclaimer: Minor errors in experimental mechanic outboard motors may be present as this note was dictated using voice recognition software. Attending Provider Attestation/Addendum I personally have seen and examined the patient at the bedside and agree with resident's findings, assessment and plan of care. Continue with the Keppra, follow seizure precautions. Follow-up with EEG. MRI brain: Resulted normal
[2025-08-29] VITALS (7 sets, daily range): BP systolic 104–120; BP diastolic 63–90; PULSE 20–112; RESP 15–99; TEMP 35.9–36.2; O2SAT 96–98; BMI 37.0
[2025-08-29 06:07] LABS: Basophils # (Auto) 0.0 Thou/mm3 (0.0-0.2); Basophils % (Auto) 0 % (0-2.5); Eosinophils # (Auto) 0.9 Thou/mm3 (0.0-0.5); Eosinophils % (Auto) 8 % (0-10); Hematocrit 46.7 % (41.0-53.0); Hemoglobin 16.1 g/dL (13.5-16.0); Immature Granulocytes Auto 0.05 Thou/mm3 (0.00-0.00); Lymphocytes # (Auto) 2.1 Thou/mm3 (1.0-4.8); Lymphocytes % (Auto) 17 % (10-50); Mean Corpuscular HGB Conc 34.5 g/dl (31.0-37.0); Mean Corpuscular Hemoglobin 29.5 pg (25.0-35.0); Mean Corpuscular Volume 86 fL (80-100); Monocytes # (Auto) 0.8 Thou/mm3 (0.0-0.8); Monocytes % (Auto) 7 % (0-12); Neutrophils # (Auto) 8.0 Thou/mm3 (1.8-7.7); Neutrophils % (Auto) 67 % (37-80); Nucleated Red Blood Cell # 0.00 Thou/mm3 (0.00-0.00); Nucleated Red Blood Cell % 0 /100 WBC (0); Platelet Count 222 Thou/mm3 (140-440); RDW Standard Deviation 38.2 fL (35.1-43.9); Red Blood Count 5.45 Miln/mm3 (4.50-5.90); White Blood Count 11.9 Thou/mm3 (3.8-10.6)
[2025-08-29 06:23] LABS: Alanine Aminotransferase 82 U/L (10-49); Albumin, Serum 5.1 gm/dL (3.5-5.0); Albumin/Globulin Ratio 2.4 (1.2-2.2); Anion Gap 9 (7-16); Aspartate Amino Transferase 46 U/L (0-34); BUN/Creatinine Ratio 10 Ratio (12-20); Bilirubin,Total 0.5 mg/dL (0.3-1.2); Blood Urea Nitrogen 10 mg/dL (9-23); Calcium 10.4 mg/dL (8.3-10.6); Calcium (Corrected) 10.4 mg/dL (8.5-10.1); Carbon Dioxide 28.6 mMol/L (20.0-31.0); Chloride 104 mMol/L (98-107); Creatinine (Component) 1.0 mg/dL (0.6-1.3); Estimated Creatinine Clearance 125.7 mL/min (>60); Globulin 2.1 gm/dL (2.3-3.5); Glucose 95 mg/dL (74-106); Osmolality,Calculated 282 (275-295); Potassium 4.3 mMol/L (3.4-5.1); Sodium 142 mMol/L (136-145); Total Protein 7.2 gm/dL (5.7-8.2); eGFR > 60 See Note
[2025-08-29 06:53] LABS: Alkaline Phosphatase 89 U/L (46-116)
[2025-08-29] MEDS: ENOXAPARIN SOD INJ 40 MG/0.4 ML SYRINGE SC (08:29)
--- NOTE | 2025-08-29 09:46 | ESDS_ITS ---
Planned Discharge Date 08/29/25 DS: Providers Provider Date of admission: 08/25/25 21:41 Primary care physician: Ronnie Son Admitting Provider: Natalya Mayberry MD Attending Provider on Admission: Susan Fitch MD Consults: 08/25/25 21:48 Consult to Neurology / Tele-Neurology Stat Comment: possible seizures Consulting Provider: Tahir Kurtz Attending Provider on DC: Susan Fitch MD Discharging Provider: Meño Butt DO DS: Diagnosis Discharge Diagnosis (1) New onset seizure without head trauma: Status: Acute Problem List Completed Was Problem List Reviewed/Reconciled?: Yes Hospital Course Hospital Course Hospital course: Hospital Course: 25-year-old male with a history of developmental delay and intermittent explosive disorder who presented to the ED on 08/25/2025 after his caregiver noticed him pacing and sweating around 2 PM, along with a blank stare. After showering, the patient appeared pale with a blank stare, and was rocking, shaking, and had an elevated heart rate. The patient selectively communicates but denied any thoughts of harming himself or others. He also denied any auditory or visual hallucinations. He denied any history of seizures, though he is pending a neurology evaluation. The caregiver reported that the patient has experienced similar episodes of blank staring in the past. Initial vitals included T 98.3, BP 150/91, HR 132, RR 24, O2 sat 95% room air. Initial labs showed white blood cell count 18.2, pH 7.29 (with repeat at 7.39), and a CK >1300. Sodium 141, potassium 4.3, bicarbonate 13.8 (repeat 20.2), creatinine 1.3 (repeat 0.7), lactic acid 14.1 (repeat 7.1), phosphorus 1.3, and ammonia 104. Head CT, toxicology screen, urinalysis, and urine drug screen were all negative. EKG showed sinus tachycardia with a heart rate of 109 and a QTc of 438 ms. In ED patient received lorazepam 2 mg IV x 1, Benadryl 50 mg IV x 1, and 4 L of IV fluids. He was admitted for workup of potential seizure. The patient was worked up for seizure with an MRI which was negative. The patient also had an EEG which was negative. Given the patient's significant labs on arrival and history described by his caregivers, a second time seizure was suspected, even though it was not captured on imaging. The patient's labs and vitals are stable for discharge. The patient will be sent on Keppra and he will be directed to follow-up with neurology within 2 weeks of discharge. Problem List: #Acute encephalopathy secondary to suspected #Seizure #Intermittent explosive disorder #History of substance use #Elevated CK (Resolved) #Leukocytosis (Resolved) #Hypophosphatemia (Resolved) #Hyperammonemia (Resolved) #Hyperkalemia (Resolved) #Lactic acidosis (Resolved) #Metabolic acidosis (Resolved) Instructions: * Take your Keppra 500 mg twice per day * Continue taking all other home medications as prescribed * Follow up with your Neurologist Dr. Avina within 2 weeks of discharge [phone] * Follow-up with PCP within 1-2 weeks of discharge * If you do not have a PCP, then you can follow-up at the [facility] * Return to the emergency room if symptoms worsen The patient was seen and discussed with my attending physician Dr. Little LAZARO and my senior resident Dr. Fabrice LAZARO PGY-2. Meño Butt DO PGY-1 Time Spent with Patient Time attestation: Total time spent providing and/or coordinating discharge services: 32 minutes Time spent: Greater than 30 minutes Exam Vital Signs Temp Pulse Resp BP Pulse Ox O2 Del Method 97 F 89 19 119/87 H 97 Room Air 08/29/25 08:00 08/29/25 08:00 08/29/25 08:00 08/29/25 08:00 08/29/25 08:00 08/29/25 08:00 Narrative Exam General: Awake and in no acute distress. Neurologic: Mute. Follows commands. No gross neurological deficit, and patient able to move all 4 extremities. HEENT: Normocephalic, atraumatic, mucous membranes moist. Pupils reactive to light. Heart: Regular rate and rhythm, normal S1 and S2, no murmurs. Lungs: Clear to auscultation bilaterally with no wheezing or crackles. Abdomen: Soft, nondistended, nontender, positive bowel sounds. No guarding or rebound tenderness. Extremities: No edema. 2+ radial and dorsalis pedis pulses bilaterally. Skin: Warm. Dry. No rash or ecchymoses. Discharge Plan Plan Patient Disposition: HOME (Self Care) Disposition Comment: [facility] half-way Patient condition on transfer: Stable Care Plan Goals: Instructions: * Take your Keppra 500 mg twice per day * Continue taking all other home medications as prescribed * Follow up with your Neurologist Dr. Avina within 2 weeks of discharge [phone] * Follow-up with PCP within 1-2 weeks of discharge * If you do not have a PCP, then you can follow-up at the [facility] * Return to the emergency room if symptoms worsen Prescriptions/Referrals Prescriptions/Med Rec: New levetiracetam [Keppra] 500 mg tablet 500 mg PO BID 30 Days Qty: 60 0RF Continued multivitamin [One Daily Multivitamin] Tablet 1 tab PO DAILY famotidine 20 mg tablet 20 mg PO BID risperidone 1 mg tablet 1 mg PO .am loratadine 10 mg tablet 10 mg PO Q24H PRN (Reason: allergy symptoms) sennosides [senna] 8.6 mg tablet 8.6 mg PO HS lorazepam 1 mg tablet 0.5 mg PO Q8H PRN (Reason: agitation) acetaminophen [Pain Relief (acetaminophen)] 500 mg tablet 500 mg PO Q6H PRN (Reason: fever or pain) risperidone 2 mg tablet 2 mg PO BID polyethylene glycol 3350 [ClearLax] 17 gram/dose powder 17 g PO .q2day PRN (Reason: constipation) melatonin 3 mg capsule 3 mg PO HS loperamide 2 mg capsule 2 mg PO Q6H PRN (Reason: loose stool) menthol-zinc oxide [Calmoseptine] 0.44-20.6 % ointment 1 applic topical BID PRN (Reason: wound healing) Referrals: Ronnie Son [Primary Care Provider] Tahir Kurtz MD [Physician, Neurology] Patient/Caregiver Discharge Instructions Education Materials: Epilepsy: Safety During a Seizure, First Aid: Seizures Print Language: Slovenian Stand Alone Forms: Gillian Award Info., Patient Portal Info Letter Discharge Order Discharge Orders: Discharge (Routine); Ordered 08/29/25 Ordered By: Sheela Avina Quality Discharge Quality Measures none MD Attestestation MD Attestation I have seen and examined the patient. I was physically present for the alfredo portions of the services provided including history, physical exam, diagnosis, treatment plans and orders. I agree with assessment and plan of care as documented by residents. Even though this this note was carefully revised there may still be minor errors in brazing machine operator automatic due to voice recognition software. Susan Fitch MD
[2025-09-04 07:06] LABS: Vitamin B1 (Thiamine)* 22 nmol/L (8-30)
== END 2025-08-29 14:20 | disposition home or self-care (01) | DRG 53 ==
LOC: SERX 18:27 → SERHOLD 21:56 → S2NX 08-26 00:20
PROVIDERS: Nurse Practitioner Family; Admitting Provider Student in an Organized Health Care Education/Training Program; Emergency Provider Emergency Medicine; PCP Family Medicine; Visit Provider Student in an Organized Health Care Education/Training Program
DX: R56.9 Unspecified convulsions (principal); F63.81 Intermittent explosive disorder; G93.49 Other encephalopathy; E83.39 Other disorders of phosphorus metabolism; E72.20 Disorder of urea cycle metabolism, unspecified; E87.5 Hyperkalemia; E87.20 Acidosis, unspecified; D72.829 Elevated white blood cell count, unspecified; F20.9 Schizophrenia, unspecified; F79 Unspecified intellectual disabilities; R47.01 Aphasia; R74.8 Abnormal levels of other serum enzymes; Z78.1 Physical restraint status; Z79.899 Other long term (current) drug therapy
CPT/HCPCS: 36415; 70450; 70553; 80053; 80061; 80069; 80307; 81001; 82010; 82140; 82550; 82803; 83036; 83605; 83735; 84100; 84425; 85025; 85730; 87081; 93005; 95816; 96361; 96374; 96375; 99285; A9577; J1200; J1650; J1815; J2060; J7030; J7120; A9270

== ENCOUNTER 2025-09-05 15:11 | Emergency (ER) | payer MEDICAID, SELFPAY ==
[2025-09-05 15:19] VITALS: PULSE 122; RESP 20; O2SAT 98
--- NOTE | 2025-09-05 15:19 | PC.NURSE ---
PT BROUGHT IN WITH AMBULANCE DUE TO WAS TRYING TO LEAVE FACILITY, INCREASED HEART RATE AND BECAME DIAPHORETIC AND CARE GIVE STATED HE GET THIS WAY WHEN HE HAS ABSENT FOCAL SZ WITH HX OF. PT HEART RATE 180S AND BP OF 153/103 MD AWARE AND EKG AT BEDSIDE. PT ALSO TRYING TO PULL OFF CORDS AND BP CUFF SO MD OKAYED MEDICAL RESTRAINTS. MD WILL ORDER ATIVAN. 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
[2025-09-05 15:23] VITALS: BMI 34.8
[2025-09-05 15:47] VITALS: BP 153/103; PULSE 186; RESP 26; TEMP 37.2; O2SAT 96
--- NOTE | 2025-09-05 15:57 | PD.EDSEIZ ---
ED Seizures RME/HPI General Chief Complaint: Seizure Stated Complaint: POSSIBLE SEIZURE Time Seen by Provider: 09/05/25 15:47 Arrival date/time: 09/05/25 15:11 RME / HPI RME / HPI Narrative: 25 year old male with history of developmental delay presents to the ED BIB longterm for evaluation of possible seizure today. Per the caregiver, the patient was noted to be pacing back and forth in the home, diaphoretic, starting blankly, and HR was elevated in the 180s. Care gver reports the patient had been evaluated and admitted here before for similar symptoms and diagnosed with seizures and started on Keppra. Caregiver expressed concerns of the patient possibly having a seizure today. No other associated symptoms or complaints reported. Related Data Home Medications ?Medication ?Instructions ?Recorded ?Confirmed acetaminophen 500 mg tablet (Pain 500 mg PO Q6H PRN fever or pain 08/08/25 08/25/25 Relief (acetaminophen)) famotidine 20 mg tablet 20 mg PO BID 08/08/25 08/25/25 loperamide 2 mg capsule 2 mg PO Q6H PRN loose stool 08/08/25 08/25/25 loratadine 10 mg tablet 10 mg PO Q24H PRN allergy symptoms 08/08/25 08/25/25 lorazepam 1 mg tablet 0.5 mg PO Q8H PRN agitation 08/08/25 08/25/25 melatonin 3 mg capsule 3 mg PO HS 08/08/25 08/25/25 menthol 0.44 %-zinc oxide 20.6 % 1 applic topical BID PRN wound 08/08/25 08/25/25 topical ointment (Calmoseptine) healing multivitamin (One Daily 1 tab PO DAILY 08/08/25 08/25/25 Multivitamin tablet) polyethylene glycol 3350 17 17 g PO .q2day PRN constipation 08/08/25 08/25/25 gram/dose oral powder (ClearLax) risperidone 1 mg tablet 1 mg PO .am 08/08/25 08/25/25 risperidone 2 mg tablet 2 mg PO BID 08/08/25 08/25/25 sennosides 8.6 mg tablet (senna) 8.6 mg PO HS 08/08/25 08/25/25 Previous Rx's ?Medication ?Instructions ?Recorded levetiracetam 500 mg tablet 500 mg PO BID 30 days #60 tabs 08/29/25 (Keppra) Allergies Allergy/AdvReac Type Severity Reaction Status Date / Time No Known Allergies Allergy Verified 08/25/25 15:38 Review of Systems Review of Systems Systems Reviewed: All systems reviewed, normal except as documented Past Medical History Past Medical History NEUROLOGIC: Positive Neurological Disorders, Seizures and Traumatic Brain Injury CARDIAC: Positive Cardiac Disorders (tachycardia) PSYCHO/SOCIAL: Positive Psychiatric Problems, Schizophrenia, Anxiety and Behavior Problems OTHER HISTORY: Positive Autism and Developmental Delay Family History FAMILY HISTORY: Negative Family Cardiac Disorders Social History SMOKING STATUS: Never smoker ED Exam Narrative Physical exam: GENERAL APPEARANCE: Altered, slightly agitated, difficult to redirect, mildly diaphoretic HEENT: Normocephalic, atraumatic; pupils equal, round, reactive to light; EOMI; mucous membranes pink, moist; oropharynx clear NECK: Supple LUNGS: CTABL; no wheezes, no rales, no rhonchi HEART: Tachycardic, regular rhythm; normal S1, S2; no murmurs ABDOMEN: non distended; normal BS; soft, no tenderness, no guarding, no rebound; no masses, no organomegaly, no hernia BACK: no CVA tenderness EXTREMITIES: atraumatic; no edema NEUROLOGIC: Altered; cranial nerves II-XII grossly intact PSYCHIATRIC: Agitated, difficult to redirect SKIN: warm, mildly diaphoretic, normal color; no rashes Course Quality Measures none Orders Category Date Time Status 24 HR Medical Restraints Q2HR Care 09/05/25 16:[address] Screening NOW Care 09/05/25 19:30 Completed EKG (ED ONLY) *Do not use* NOW Care 09/05/25 15:58 Completed EKG (ED ONLY) *Do not use* NOW Care 09/05/25 16:[address] angio chest abdomen pelvis Stat Exams 09/05/25 19:30 Completed CXRP [XR chest 1V portable] Stat Exams 09/05/25 19:20 Completed EKG (ED Only) Stat Exams 09/05/25 15:58 Draft EKG (ED Only) Stat Exams 09/05/25 16:54 Ordered Alcohol, Urine Stat Lab 09/05/25 17:15 Completed Blood Culture (Lab) Stat Lab 09/05/25 18:30 Completed CBC Stat Lab 09/05/25 16:44 Completed CMP [Comprehensive Metabolic Panel] Stat Lab 09/05/25 16:44 Completed Creatine Kinase Stat Lab 09/05/25 16:44 Completed Drug Screen,Urine Stat Lab 09/05/25 17:15 Completed Lactate (Lactic Acid) Stat Lab 09/05/25 18:27 Completed Lactic Acid, 3 HR Stat Lab 09/05/25 22:28 Completed Procalcitonin Stat Lab 09/05/25 18:27 Completed Troponin I Stat Lab 09/05/25 16:44 Completed Urinalysis Stat Lab 09/05/25 17:15 Completed Urine Culture Stat Lab 09/05/25 17:15 Completed LORazepam [Ativan Inj] Med 09/05/25 16:01 Discontinued 2 mg .ROUTE .STK-MED ONE LORazepam [Ativan Inj] Med 09/05/25 15:59 Discontinued 2 mg IVP X1 ONE Labetalol* IV [Trandate IV] Med 09/05/25 16:06 Discontinued 20 mg IVP X1 ONE Sodium Chloride 0.9% 1000 ml [Ns] 1,000 ml Med 09/05/25 17:34 Discontinued IV 999 mls/hr Sodium Chloride 0.9% 1000 ml [Ns] 1,000 ml Med 09/05/25 19:30 Discontinued IV 999 mls/hr Vital Signs Vital signs: Vital Signs Temperature 98.9 F 09/05/25 15:47 Pulse Rate 186 H 09/05/25 15:47 Respiratory Rate 26 H 09/05/25 15:47 Blood Pressure 153/103 H 09/05/25 15:47 Pulse Oximetry (%) 96 09/05/25 15:47 Oxygen Delivery Method Room Air 09/05/25 15:47 Pulse ox is 96% on room air which is adequate. Seizure MDM Narrative MDM Narrative:: Mirna Man am scribing for and in the presence of Dr. Reveles. 1555p: RN reports the patient is becoming more agitated and difficult to redirect, will order 2mg IV Ativan. Will also order Labetalol for HR. 1715: HR now 110s, sinus tachycardia on telemetry. 1800: Signed out to Dr. Brody. Patient data External records reviewed:: [facility] previous records and EMS form Clinical information provided by:: EMS and oracle analyst Social determinants that could affect healthcare access:: mental health Patient has the following chronic illnesses:: developmental delay, seizures?, schizophrenia? How is presenting disease/condition affected by chronic disease/condition?: exacerbated by Evaluation data The following diagnostics were reviewed and interpreted by me:: lab results and EKG tracing(s) (EKG @ 1555, SVT, rate 172, no STEMI. Repeat EKG @ 1637, sinus tachycardia rate 110, no STEMI. ) Lab and/or radiology exams considered but not ordered:: None Interpretation Summary: leukocytosis, WBC 19.0, lactic acidosis, LA 3.5, mild transaminitis AST/ALT 36/102 Medications / Prescriptions Medications or Prescriptions considered but not ordered:: none Medication administrations:: Medication Administration History Discontinued Medications Sodium Chloride (Ns) 1,000 mls @ 999 mls/hr IV .Q1H1M ONE Stop: 09/05/25 18:34 Last Infusion: 09/05/25 19:40 Dose: Infused Documented By: Admin: 09/05/25 17:48 Dose: 999 mls/hr Documented By: STEFANIE Sodium Chloride (Ns) 1,000 mls @ 999 mls/hr IV .Q1H1M ONE Stop: 09/05/25 20:30 Last Infusion: 09/05/25 21:27 Dose: Infused Documented By: Admin: 09/05/25 19:37 Dose: 999 mls/hr Documented By: RAF Labetalol HCl (Labetalol Inj 5 Mg/Ml Vial 4 Ml) 20 mg IVP X1 ONE Stop: 09/05/25 16:07 Last Admin: 09/05/25 16:19 Dose: 20 mg Documented By: SEBLE Lorazepam (Lorazepam 2 Mg/Ml Vial) 2 mg IVP X1 ONE Stop: 09/05/25 16:00 Last Admin: 09/05/25 16:03 Dose: 2 mg Documented By: SEBLE Lorazepam (Lorazepam 2 Mg/Ml Vial) Confirm Administered Dose 2 mg .ROUTE .STK-MED ONE Stop: 09/05/25 16:02 Last Admin: 09/05/25 16:04 Dose: Not Given Documented By: SEBLE Non-Admin Reason: Override Medication See above Consultations Consultation(s) initiated? (list below): No Diagnosis Seizure Differential Diagnosis: intractable seizure disorder, focal seizure and generalized seizure Most likely diagnosis given after review of the tests above:: recurrent seizure Admission Indicated Admission indicated?: not indicated Explain why admission is indicated or not indicated:: Signed out pending labs and final disposition. Admission Request Was there a request for admission?: No Disposition Plan Disposition Plan: other (specify) (signed out pending final dispo ) Discharge Plan Prescriptions/Referrals Prescriptions/Med Rec: No Action multivitamin [One Daily Multivitamin] Tablet 1 tab PO DAILY famotidine 20 mg tablet 20 mg PO BID risperidone 1 mg tablet 1 mg PO .am loratadine 10 mg tablet 10 mg PO Q24H PRN (Reason: allergy symptoms) sennosides [senna] 8.6 mg tablet 8.6 mg PO HS lorazepam 1 mg tablet 0.5 mg PO Q8H PRN (Reason: agitation) acetaminophen [Pain Relief (acetaminophen)] 500 mg tablet 500 mg PO Q6H PRN (Reason: fever or pain) risperidone 2 mg tablet 2 mg PO BID polyethylene glycol 3350 [ClearLax] 17 gram/dose powder 17 g PO .q2day PRN (Reason: constipation) melatonin 3 mg capsule 3 mg PO HS loperamide 2 mg capsule 2 mg PO Q6H PRN (Reason: loose stool) menthol-zinc oxide [Calmoseptine] 0.44-20.6 % ointment 1 applic topical BID PRN (Reason: wound healing) levetiracetam [Keppra] 500 mg tablet 500 mg PO BID 30 Days Qty: 60 0RF Referrals: Jose Lazar MD [Primary Care Provider, Family Practice] - In 1 week Problem List Clinical Impression: Seizure Patient/Caregiver Discharge Instructions Print Language: Italian
--- NOTE | 2025-09-05 15:58 | EKG_ITS ---
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
[2025-09-05] MEDS: LORazepam 2 MG/ML VIAL IVP (16:03)
[2025-09-05 16:48] VITALS: BP 113/61; PULSE 109; RESP 18; O2SAT 96
[2025-09-05 16:54] LABS: Basophils # (Auto) 0.1 Thou/mm3 (0.0-0.2); Basophils % (Auto) 0 % (0-2.5); Eosinophils # (Auto) 0.0 Thou/mm3 (0.0-0.5); Eosinophils % (Auto) 0 % (0-10); Hematocrit 44.6 % (41.0-53.0); Hemoglobin 15.2 g/dL (13.5-16.0); Immature Granulocytes Auto 0.11 Thou/mm3 (0.00-0.00); Lymphocytes # (Auto) 0.5 Thou/mm3 (1.0-4.8); Lymphocytes % (Auto) 3 % (10-50); Mean Corpuscular HGB Conc 34.1 g/dl (31.0-37.0); Mean Corpuscular Hemoglobin 28.8 pg (25.0-35.0); Mean Corpuscular Volume 85 fL (80-100); Monocytes # (Auto) 0.6 Thou/mm3 (0.0-0.8); Monocytes % (Auto) 3 % (0-12); Neutrophils # (Auto) 17.7 Thou/mm3 (1.8-7.7); Neutrophils % (Auto) 93 % (37-80); Nucleated Red Blood Cell # 0.00 Thou/mm3 (0.00-0.00); Nucleated Red Blood Cell % 0 /100 WBC (0); Platelet Count 256 Thou/mm3 (140-440); RDW Standard Deviation 37.9 fL (35.1-43.9); Red Blood Count 5.27 Miln/mm3 (4.50-5.90); White Blood Count 19.0 Thou/mm3 (3.8-10.6)
[2025-09-05 17:16] LABS: Alanine Aminotransferase 102 U/L (10-49); Albumin, Serum 5.2 gm/dL (3.5-5.0); Albumin/Globulin Ratio 2.1 (1.2-2.2); Alkaline Phosphatase 92 U/L (46-116); Anion Gap 18 (7-16); Aspartate Amino Transferase 36 U/L (0-34); BUN/Creatinine Ratio 9 Ratio (12-20); Bilirubin,Total 0.3 mg/dL (0.3-1.2); Blood Urea Nitrogen 11 mg/dL (9-23); Calcium 9.7 mg/dL (8.3-10.6); Calcium (Corrected) 9.7 mg/dL (8.5-10.1); Carbon Dioxide 18.9 mMol/L (20.0-31.0); Chloride 101 mMol/L (98-107); Creatine Kinase 153 U/L (34-171); Creatinine (Component) 1.2 mg/dL (0.6-1.3); Estimated Creatinine Clearance 104.9 mL/min (>60); Globulin 2.5 gm/dL (2.3-3.5); Glucose 147 mg/dL (74-106); Osmolality,Calculated 278 (275-295); Potassium 3.8 mMol/L (3.4-5.1); Sodium 138 mMol/L (136-145); Total Protein 7.7 gm/dL (5.7-8.2); Troponin I 0.031 ng/mL (0.0-0.045); eGFR > 60 See Note
[2025-09-05] MEDS: SODIUM CHLORIDE 0.9% 1000 ML 1,000 ML 999 ML IV ×2 (17:48→19:37)
--- NOTE | 2025-09-05 18:31 | PD.EDADDENDU ---
Emergency Room Addendum Addendum Narrative: 1800: Care assumed from Dr. Reveles, the previous shift emergency physician. Past medical, surgical, social and family history reviewed. Vitals and home medications reviewed. Results and treatment plan discussed. I will assume the care of the patient at this time and will follow the patient. Please refer to the emergency department record for history and examination from initial visit. Patient's lactic acid improved from 3.5 to 1.3 after 2L NS IVF. Patient is alert, awake, and interacting appropriately. Patient is stable to be discharged home. RADIOLOGY RESULTS: [facility] [id number] Birthdate: 2000 Age/Sex: 25 / M Location: [facility] Attending Dr: Ordering Physician: Maria Brody MD Date of Service: 09/05/25 Procedure(s): XR chest 1V portable Accession Number(s): [id number] cc: Jose Lazar MD; Pedrito Lr MD; Maria Brody MD~ EXAMINATION: AP chest single view TECHNIQUE: AP portable upright chest single view Date and time: September 05, 2025, 1940 hours, comparison August 08, 2025 INDICATION: Supraventricular tachycardia today. FINDINGS: Normal heart size No pneumonia or pulmonary edema Moderate osteopenia IMPRESSION: No pneumonia or pulmonary edema Dictated By: Pedrito Lr MD Signed By: <Electronically signed by Pedrito Lr MD in > 09/05/252048 [facility] Record#: [id number] Birthdate: 2000 Age/Sex: 25 / M Location: [facility] Attending Dr: Ordering Physician: Maria Brody MD Date of Service: 09/05/25 Procedure(s): CT angio chest abdomen pelvis Accession Number(s): [id number] cc: Jose Lazar MD; Pedrito Lr MD; Maria Brody MD~ Examination: CTA chest, with intravenous contrast. CTA abdomen, with intravenous contrast. CTA pelvis, with intravenous contrast. 2-D sagittal and coronal reconstructions. 3-D reconstructions. Date and time of exam: September 05, 2025, 2103 hours INDICATIONS: Tachycardia, elevated lactic acid, possible seizure today, supraventricular tachycardia CTDI vol (mgy) 13.3 DLP (MGycm) 1055 Technique: Multiple CTA images, 2.0 mm slice thickness, obtained chest, abdomen, pelvis, with the high-resolution 64 slice scanner. 100 cc Isovue-370 is administered intravenously. Sagittal and coronal 2-D reconstructions are obtained. 3-D reconstructions, angiographic images are obtained. 3-D postprocessing, including vascular maximum intensity projections. Low dose protocols were performed. One or more of the following dose reduction techniques were used; automated exposure control, adjustment of the mA and/or KV according to patient size, use of iterative reconstruction technique. Findings: No thoracic aortic aneurysmal dilatation Pulmonary artery segments are not enlarged No paratracheal tracheobronchial or bronchopulmonary adenopathy No pneumonia or pulmonary edema or pleural disease Prominent fatty infiltration throughout the liver No visualized liver or splenic lesion, splenomegaly 14 cm No gallstones No pancreatic or adrenal mass Aortic in the abdomen normal size No abdominal or pelvic lymphadenopathy No renal or ureteral calculi, no hydronephrosis No bowel obstruction Normal appendix No diverticulitis 12 mm fat-containing umbilical hernia Normal seminal vesicles normal size prostate Normal urinary bladder Osseous structures intact IMPRESSION: No thoracic aortic aneurysmal dilatation Negative for pulmonary artery emboli No mediastinal lymphadenopathy No pneumonia or pulmonary edema or pleural disease Severe fatty infiltration throughout the liver, splenomegaly 14 cm No renal or ureteral calculi, no hydronephrosis Normal appendix No bowel obstruction diverticulitis or free air Dictated By: Pedrito Lr MD Signed By: <Electronically signed by Pedrito Lr MD in OV> 09/05/25 3537
[2025-09-05 18:32] VITALS: BP 90/66; PULSE 109; RESP 19; O2SAT 95
[2025-09-05 18:32] LABS: Alcohol, Urine Negative (Negative)
[2025-09-05 18:50] LABS: Lactate (Lactic Acid) 3.5 mMol/L (0.4-2.0)
--- NOTE | 2025-09-05 19:20 | XR_ITS ---
EXAMINATION: AP chest single view TECHNIQUE: AP portable upright chest single view Date and time: September 05, 2025, 1940 hours, comparison August 08, 2025 INDICATION: Supraventricular tachycardia today. FINDINGS: Normal heart size No pneumonia or pulmonary edema Moderate osteopenia IMPRESSION: No pneumonia or pulmonary edema
[2025-09-05 19:27] LABS: Procalcitonin < 0.04 ng/ml (0.0-0.49)
--- NOTE | 2025-09-05 19:30 | XR_ITS ---
Examination: CTA chest, with intravenous contrast. CTA abdomen, with intravenous contrast. CTA pelvis, with intravenous contrast. 2-D sagittal and coronal reconstructions. 3-D reconstructions. Date and time of exam: September 05, 2025, 2103 hours INDICATIONS: Tachycardia, elevated lactic acid, possible seizure today, supraventricular tachycardia CTDI vol (mgy) 13.3 DLP (MGycm) 1055 Technique: Multiple CTA images, 2.0 mm slice thickness, obtained chest, abdomen, pelvis, with the high-resolution 64 slice scanner. 100 cc Isovue-370 is administered intravenously. Sagittal and coronal 2-D reconstructions are obtained. 3-D reconstructions, angiographic images are obtained. 3-D postprocessing, including vascular maximum intensity projections. Low dose protocols were performed. One or more of the following dose reduction techniques were used; automated exposure control, adjustment of the mA and/or KV according to patient size, use of iterative reconstruction technique. Findings: No thoracic aortic aneurysmal dilatation Pulmonary artery segments are not enlarged No paratracheal tracheobronchial or bronchopulmonary adenopathy No pneumonia or pulmonary edema or pleural disease Prominent fatty infiltration throughout the liver No visualized liver or splenic lesion, splenomegaly 14 cm No gallstones No pancreatic or adrenal mass Aortic in the abdomen normal size No abdominal or pelvic lymphadenopathy No renal or ureteral calculi, no hydronephrosis No bowel obstruction Normal appendix No diverticulitis 12 mm fat-containing umbilical hernia Normal seminal vesicles normal size prostate Normal urinary bladder Osseous structures intact IMPRESSION: No thoracic aortic aneurysmal dilatation Negative for pulmonary artery emboli No mediastinal lymphadenopathy No pneumonia or pulmonary edema or pleural disease Severe fatty infiltration throughout the liver, splenomegaly 14 cm No renal or ureteral calculi, no hydronephrosis Normal appendix No bowel obstruction diverticulitis or free air
[2025-09-05 19:44] LABS: Collection Type, Urine Clean Catch; Squamous Epithelial Cell,Urine 0 /hpf (0-5)
[2025-09-05 19:47] LABS: Bilirubin,Urine Negative (Negative); Blood,Urine Negative (Negative); Clarity,Urine Clear (Clear/Hazy); Color,Urine Lt-Yellow (Lt Yel-Yel); Glucose, Urine Negative (Negative); Ketones,Urine 1+ (Negative); Leukocyte Esterase,Urine Negative (Negative); Nitrite,Urine Negative (Negative); PH,Urine 6.0 (5.0-7.0); Protein,Urine Trace (Neg - Trace); RBC,Urine 2 /hpf (0-3); Specific Gravity,Urine 1.018 (1.001-1.035); Urobilinogen,Urine Negative mg/dL (0.0-1.0); WBC,Urine 1 /hpf (0-5)
[2025-09-05 19:54] LABS: Amphetamine/Methamp Scrn,U Negative (Negative); Barbiturate Screen,Urine Negative (Negative); Benzodiazepines Screen,Urine Negative (Negative); Benzoylecgonine Screen, Ur Negative (Negative); Fentanyl Screen,Urine Negative (Negative); Opiate Screen,Urine Negative (Negative); THC Screen,Urine Negative (Negative)
[2025-09-05 20:33] VITALS: BP 130/68; PULSE 103; RESP 16; TEMP 36.6; O2SAT 97
[2025-09-05 21:54] LABS: Reflex Lactate? Y
[2025-09-05 22:35] LABS: Lactic Acid, 3 HR 1.3 mMol/L (0.4-2.0)
== END 2025-09-05 23:18 | disposition home or self-care (01) ==
PROVIDERS: Emergency Medicine; Emergency Provider Emergency Medicine; PCP Family Medicine
DX: R56.9 Unspecified convulsions (principal); I47.10 Supraventricular tachycardia, unspecified; K76.0 Fatty (change of) liver, not elsewhere classified; R16.1 Splenomegaly, not elsewhere classified
CPT/HCPCS: 36415; 71045; 71275; 74174; 80053; 80307; 80320; 81001; 82550; 83605; 84145; 84484; 85025; 87040; 87086; 93005; 96361; 96374; 96375; 99284; A4649; J1920; J2060; J7030; Q9967; G0480

== ENCOUNTER 2025-09-27 21:34 | Emergency (ER) | payer MEDICAID, SELFPAY ==
--- NOTE | 2025-09-27 21:57 | PC.NURSE ---
code luther called as pt would not stay in room tube builder airplane could not redirect, pt would not comply with staying in room
[2025-09-27] MEDS: DIAZEPAM INJ 5 MG/ML VIAL 2 ML 10 MG IM (22:01)
[2025-09-27] MEDS: HALOPERIDOL LACT INJ 5 MG/ML VIAL 10 MG IM (22:02)
--- NOTE | 2025-09-27 22:16 | XR_ITS ---
EXAMINATION: AP chest single view TECHNIQUE: AP portable semiupright chest single view Date and time: September 27, 2025, 10:19 p.m. INDICATIONS: Shortness of breath fever today FINDINGS: Normal heart size Lungs are clear. The osseous rectors are intact IMPRESSION: No active disease
--- NOTE | 2025-09-27 22:16 | XR_ITS ---
Examination: CT brain head without contrast. 2-D sagittal coronal reconstructions Date and time of exam: September 28, 2025, 1232 hours INDICATIONS: Altered mental status and seizure today CTDI: vol (mGy): 55 DLP: (mGycm): 1054 Technique: Multiple CT axial sections of the brain have been obtained, 5 mm slice thickness. Contrast has not been administered. 2-D sagittal, coronal reconstructions have been obtained Low dose protocols were performed. One or more of the following dose reduction techniques were used; automated exposure control, adjustment of the mA and/or KV according to patient size, use of iterative reconstruction technique. Findings: No significant ventricular enlargement. Intra-axial or extra-axial hemorrhage density is not seen. No mass effect or midline shift Basal cisterns are not remarkable. Fourth ventricle is midline. Cranial vault intact. Impression: Negative for acute hemorrhage, mass effect or midline shift Advise clinical correlation and follow-up accordingly
--- NOTE | 2025-09-27 22:16 | EKG_ITS ---
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
[2025-09-27 22:17] VITALS: BP 150/86; PULSE 180; RESP 20; O2SAT 96
--- NOTE | 2025-09-27 22:17 | EDNOTE_ITS ---
Altered Mental Status RME/HPI General Chief Complaint: General Adult/Misc Complain Stated Complaint: POSSIBLE SZ Time Seen by Provider: 09/27/25 21:58 Arrival date/time: 09/27/25 21:34 RME / HPI RME / HPI narrative: See [facility] [place] for Dr. Gardner's HPI Documentation. Related Data Home Medications ?Medication ?Instructions ?Recorded ?Confirmed acetaminophen 500 mg tablet (Pain 500 mg PO Q6H PRN fe marcus or pain 08/08/25 08/25/25 Relief (acetaminophen)) famotidine 20 mg tablet 20 mg PO BID 08/08/25 loperamide 2 mg capsule 2 mg PO Q6H PRN loose stool 08/08/25 08/25/25 loratadine 10 mg tablet 10 mg PO Q24H PRN allergy sy mptoms 08/08/25 08/25/25 lorazepam 1 mg tablet 0.5 mg PO Q8H PRN agitation 08/08/25 08/25/25 melatonin 3 mg capsule 3 mg PO HS 08/08/25 08/25/25 menthol 0.44 %-zinc oxide 20.6 % 1 applic topical BID PRN wound 08/08/25 08/25/25 topical ointment (Calmoseptine) healing multivitamin (One Daily 1 tab PO DAILY 08/08/2508/06 Multivitamin tablet) polyethylene glycol 3350 17 17 g PO .q2day PRN constip ation 08/08/25 08/25/25 gram/dose oral powder (ClearLax) risperidone 1 mg tablet 1 mg PO .am 08/08/25 5 risperidone 2 mg tablet 2 mg PO BID 08/08/25 5 sennosides 8.6 mg tablet (senna) 8.6 mg PO HS 08/08/25 08/25/25 Previous Rx's ?Medication ?Instructions ?Recorded levetiracetam 1,000 mg tablet 1,000 mg PO BID #60 tabs 09/28/25 (Keppra) Allergies Allergy/AdvReac Type Severity Reaction Status Date / Time No Known Allergies Allergy Verified 08/25/25 15:38 Review of Systems Review of Systems Systems Reviewed: All systems reviewed, normal except as documented Past Medical History Past Medical History NEUROLOGIC: Positive Neurological Disorders, Seizures and Traumatic Brain Injury CARDIAC: Positive Cardiac Disorders (tachycardia) PSYCHO/SOCIAL: Positive Psychiatric Problems, Schizophrenia, Anxiety and Behavior Problems OTHER HISTORY: Positive Autism and Developmental Delay Surgical History SURGICAL: Positive Abdominal Surgery (g tube) ED Exam Narrative Physical exam: See [facility] [place] for Dr. Gardner's Physical Exam Documentation. Course Quality Measures none Orders Category Date Time Status Bedside COVID-19 Antigen Test NOW Care 09/27/25 22:15 Completed Bedside Influenza A&B Antigen Test NOW Care 09/27/25 22:15 Completed EKG (ED ONLY) *Do not use* NOW Care 09/27/25 22:16 Completed EKG (ED ONLY) *Do not use* NOW Care 09/27/25 22:38 Completed In and Out Catheter X1 Care 09/27/25 23:48 Completed Saline [Insert IV] NOW Care 09/27/25 22:[address] head/brain wo con Stat Exams 09/27/25 22:16 Completed EKG (ED Only) Stat Exams 09/27/25 22:16 Draft EKG (ED Only) Stat Exams 09/27/25 22:38 Draft XR chest 1V portable Stat Exams 09/27/25 22:16 Completed Acetaminophen Stat Lab 09/27/25 22:29 Completed Alcohol, Blood Medical Stat Lab 09/27/25 22:29 Completed Ammonia Stat Lab 09/27/25 22:29 Completed Amylase Stat Lab 09/27/25 22:29 Completed BNP [B-Type Natriuretic Peptide] Stat Lab 09/27/25 22:29 Completed Beta Hydroxybutyrate Stat Lab 09/27/25 22:29 Completed Bilirubin,Direct Stat Lab 09/27/25 22:29 Completed Blood Culture (Lab) Stat Lab 09/27/25 22:48 Results CBC Stat Lab 09/27/25 22:29 Completed CK [Creatine Kinase] Stat Lab 09/27/25 22:29 Completed CMP [Comprehensive Metabolic Panel] Stat Lab 09/27/25 22:29 Completed CRP [C-Reactive Protein] Stat Lab 09/27/25 22:29 Completed D-Dimer Stat Lab 09/27/25 22:29 Completed Drug Screen,Urine Stat Lab 09/27/25 23:47 Completed ESR [Sed Rate (ESR)] Stat Lab 09/27/25 22:29 Completed Hemoglobin A1C [Glycohemoglobin w (eAG)] Stat Lab 09/27/25 22:29 Completed Lactate (Lactic Acid) Stat Lab 09/27/25 22:29 Completed Lipase Stat Lab 09/27/25 22:29 Completed Magnesium Stat Lab 09/27/25 22:29 Completed Procalcitonin Stat Lab 09/27/25 22:29 Completed TSH [Thyroid Stimulating Hormone] Stat Lab 09/27/25 22:29 Completed Troponin I Stat Lab 09/27/25 22:29 Completed UA, C/S IF [Urinalysis, C/S if Indicated] Stat Lab 09/27/25 23:47 Completed Uric Acid Stat Lab 09/27/25 22:29 Completed VBG [Venous Blood Gas] Stat Lab 09/28/25 00:14 Completed Diazepam Inj [Valium Inj] Med 09/27/25 21:57 Discontinued 10 mg IM X1 ONE DiphenhydrAMINE INJ [Benadryl Inj] Med 09/27/25 21:57 Discontinued 50 mg IM X1 ONE Haloperidol Lactate [Haldol Inj] Med 09/27/25 21:57 Discontinued 10 mg IM X1 ONE LORazepam [Ativan Inj] Med 09/27/25 22:58 Discontinued 2 mg IVP X1 ONE Metoprolol Tartrate Inj [Lopressor Inj] Med 09/27/25 22:27 Discontinued 5 mg IVP X1 ONE Metoprolol Tartrate [Lopressor] Med 09/27/25 22:57 Discontinued 50 mg PO X1 ONE Ondansetron Inj [Zofran Inj] Med 09/27/25 22:15 Discontinued 4 mg IVP X1 ONE Ringers Lactated 1000 ml [Lactated Ringers] 1,000 ml Med 09/27/25 22:16 Discontinued IV 1,000 mls/hr Ringers Lactated 1000 ml [Lactated Ringers] 1,000 ml Med 09/27/25 23:25 Discontinued IV 1,000 mls/hr levETIRAcetam INJ [Keppra Inj] Med 09/27/25 22:15 Discontinued 2,000 mg IVP X1 ONE Vital Signs Vital signs: Vital Signs Pulse Rate 180 H 09/27/25 22:17 Respiratory Rate 20 09/27/25 22:17 Blood Pressure 150/86 H 09/27/25 22:17 Pulse Oximetry (%) 96 09/27/25 22:17 Oxygen Delivery Method Room Air 09/27/25 22:17 Altered Mental Status MDM Narrative MDM Narrative:: This section includes all my notes and documentations, including HPI, PE, and ED course. aAron Gardner MD HPI: 25 y/o male with Hx of Schizophrenia, Anxiety, Behavior Problems, Autism and Developmental Delay here from his [facility] after possible seizures. Normally, he's calm and cooperative. For the past few hours, he has been aggressive physically and verbally, threatening staff. When he had his last seizure, he behaved similarly. No other complaints. ROS: All negative except as documented in HPI. Physical Exam: General:? Alert.? In extreme aggressive state, threatening staff and no possibility of any diagnostics. Eyes:? Conjunctivae and lids clear.? EOMI.? PERRL. ENT:? No signs of head trauma. Neck:? Supple.? No tenderness. Heart:? Tachycardia with regular rhythm. Lungs:? No respiratory distress.? Good air movement.? No rhonchi, wheezing, rales.? Chest:? No tenderness. Abdomen:? Soft and nontender.? Back:? No tenderness.? Skin:? Warm and dry.? Neuro:? Cranial Nerves II-XII grossly intact.? No peripheral motor deficits. Musculoskeletal:? All major joints and bones are not tender with no limited ROM. I reviewed all diagnostic test results: My interpretation of the EKG: Sinus tachycardia (125 bpm) with no ST-T changes. My interpretation of the chest x-ray is: NAD. My review of the Head/Brain CT report is: No acute findings. Blood/urine tests unremarkable. Covid/Influenza: Negative. At this point, diagnoses include: AMS after seizure Treatment here included: Valium 10 mg & Benadryl 50 mg & Haldol 10 mg IM (prior to diagnostics) IVF Zofran 4 mg IV Keppra 2000 mg IV Significant improvement noted. Recommended a trial of outpatient treatment. Based on my best medical judgment, made decision no further evaluation or treatment indicated at this time. longterm staff understands and agrees to the discharge instructions customized and printed, see below. Discharge Instructions from Dr. Gardner printed for you: 1. After extensive evaluation, there is no stroke or brain tumor or heart attack. 2. Possibly, Con had seizures. 3. Until seen by doctor taking care of him, increase Keppra to 1000 mg twice daily. 4. See a private doctor on 09/29/2025 for recheck and further care. Ask to review all test results and official radiology reports, to make sure you receive all necessary follow-ups and monitoring. Ask for help seeing neurologist soon as possible. 5. Seek immediate medical care with another episode or with any concerns. Aaron Gardner MD Patient data External records reviewed:: [facility] previous records (Reviewed prior ED records from 09/05/25. Patient was seen for Behavioral change. ) and EMS form Clinical information provided by:: patient and EMS Social determinants that could affect healthcare access:: mental health Patient has the following chronic illnesses:: Seizures, Traumatic Brain Injury, Schizophrenia, Anxiety, Behavior Problems, Autism and Developmental Delay How is presenting disease/condition affected by chronic disease/condition?: exacerbated by Evaluation data The following diagnostics were reviewed and interpreted by me:: lab results, radiology exam(s) and EKG tracing(s) (My interpretation of the EKG: Sinus tachycardia (125 bpm) with no ST-T changes. Aaron Gardner MD) Lab and/or radiology exams considered but not ordered:: None Interpretation Summary: I reviewed all diagnostic test results: My interpretation of the EKG: Sinus tachycardia (125 bpm) with no ST-T changes. My interpretation of the chest x-ray is: NAD. My review of the Head/Brain CT report is: No acute findings. Blood/urine tests unremarkable. Covid/Influenza: Negative. Medications / Prescriptions Medications or Prescriptions considered but not ordered:: None Medication administrations:: Medication Administration History Discontinued Medications Diazepam (Diazepam Inj 5 Mg/Ml Vial 2 Ml) 10 mg IM X1 ONE Stop: 09/27/25 21:58 Last Admin: 09/27/25 22:01 Dose: 10 mg Documented By: BD Diphenhydramine HCl (Diphenhydramine Inj 50 Mg/Ml Vial) 50 mg IM X1 ONE Stop: 09/27/25 21:58 Last Admin: 09/27/25 22:03 Dose: 50 mg Documented By: BD Haloperidol Lactate (Haloperidol Lact Inj 5 Mg/Ml Vial) 10 mg IM X1 ONE Stop: 09/27/25 21:58 Last Admin: 09/27/25 22:02 Dose: 10 mg Documented By: BD Lactated Ringer's (Lactated Ringers) 1,000 mls @ 1,000 mls/hr IV .Q1H ONE Stop: 09/27/25 23:15 Last Infusion: 09/27/25 23:23 Dose: Infused Documented By: Admin: 09/27/25 22:36 Dose: 1,000 mls/hr Documented By: BD Lactated Ringer's (Lactated Ringers) 1,000 mls @ 1,000 mls/hr IV .Q1H ONE Stop: 09/28/25 00:24 Last Infusion: 09/28/25 00:21 Dose: Infused Documented By: Admin: 09/27/25 23:40 Dose: 1,000 mls/hr Documented By: BD Levetiracetam (Levetiracetam Inj 100 Mg/Ml Vial 5ml) 2,000 mg IVP X1 ONE Stop: 09/27/25 22:16 Last Admin: 09/27/25 22:49 Dose: 2,000 mg Documented By: BD Lorazepam (Lorazepam 2 Mg/Ml Vial) 2 mg IVP X1 ONE Stop: 09/27/25 22:59 Last Admin: 09/27/25 23:16 Dose: 2 mg Documented By: BD Metoprolol Tartrate (Metoprolol Tartrate Inj 1 Mg/Ml Vial 5 Ml) 5 mg IVP X1 ONE Stop: 09/27/25 22:28 Last Admin: 09/27/25 22:32 Dose: 5 mg Documented By: BD Metoprolol Tartrate (Metoprolol Tartrate 25 Mg Tablet) 50 mg PO X1 ONE Stop: 09/27/25 22:58 Last Admin: 09/27/25 23:14 Dose: 50 mg Documented By: BD Ondansetron HCl (Ondansetron Inj 2 Mg/Ml Inj 2 Ml) 4 mg IVP X1 ONE; Protocol Stop: 09/27/25 22:16 Last Admin: 09/27/25 22:49 Dose: 4 mg Documented By: BD Treatment here included: Valium 10 mg & Benadryl 50 mg & Haldol 10 mg IM (prior to diagnostics) IVF Zofran 4 mg IV Keppra 2000 mg IV Consultations Consultation(s) initiated? (list below): No Diagnosis Differential diagnosis altered mental status: alcoholic intoxication, altered mental status, delirium, dementia, hypoglycemia, hyponatremia, subarachnoid hemorrhage and sepsis Most likely diagnosis given after review of the tests above:: AMS after seizure Admission Indicated Admission indicated?: not indicated Explain why admission is indicated or not indicated:: With significant improvement and no condition needing emergent intervention, there was no indication for admission. Admission Request Was there a request for admission?: No Disposition Plan Disposition Plan: Discharge Discharge Attestation Discharge Attestation: The patient and all family members were given an opportunity to ask questions and understood the discharge instructions. Discharge instructions specifically effects, indications for sooner follow up or return to the emergency department, and the expected course of current diagnosis. Patient condition: Stable Discharge Plan Plan Patient Disposition: HOME (Self Care) Prescriptions/Referrals Prescriptions/Med Rec: New levetiracetam [Keppra] 1,000 mg tablet 1,000 mg PO BID Qty: 60 0RF No Action multivitamin [One Daily Multivitamin] Tablet 1 tab PO DAILY famotidine 20 mg tablet 20 mg PO BID risperidone 1 mg tablet 1 mg PO .am loratadine 10 mg tablet 10 mg PO Q24H PRN (Reason: allergy symptoms) sennosides [senna] 8.6 mg tablet 8.6 mg PO HS lorazepam 1 mg tablet 0.5 mg PO Q8H PRN (Reason: agitation) acetaminophen [Pain Relief (acetaminophen)] 500 mg tablet 500 mg PO Q6H PRN (Reason: fever or pain) risperidone 2 mg tablet 2 mg PO BID polyethylene glycol 3350 [ClearLax] 17 gram/dose powder 17 g PO .q2day PRN (Reason: constipation) melatonin 3 mg capsule 3 mg PO HS loperamide 2 mg capsule 2 mg PO Q6H PRN (Reason: loose stool) menthol-zinc oxide [Calmoseptine] 0.44-20.6 % ointment 1 applic topical BID PRN (Reason: wound healing) Referrals: Katie Valiente FNP [Primary Care Provider] - In 1 week Problem List Clinical Impression: Altered mental status Patient/Caregiver Discharge Instructions Discharge Activity: activity as tolerated Education Materials: ED Confusion, ED Seizure, Recurrent (Adult) Additional Instructions: Discharge Instructions from Dr. Gardner printed for you: 1. After extensive evaluation, there is no stroke or brain tumor or heart attack. 2. Possibly, Con had seizures. 3. Until seen by doctor taking care of him, increase Keppra to 1000 mg twice daily. 4. See a private doctor on 09/29/2025 for recheck and further care. Ask to review all test results and official radiology reports, to make sure you receive all necessary follow-ups and monitoring. Ask for help seeing neurologist soon as possible. 5. Seek immediate medical care with another episode or with any concerns. Print Language: Swedish Stand Alone Forms: Gillian Award Info., Patient Portal Info Letter
[2025-09-27 22:32] VITALS: BP 150/86; PULSE 169
[2025-09-27] MEDS: RINGERS LACTATED 1000 ML 1,000 ML IV ×2 (22:36→23:40)
--- NOTE | 2025-09-27 22:38 | EKG_ITS ---
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
[2025-09-27 22:39] LABS: Basophils # (Auto) 0.1 Thou/mm3 (0.0-0.2); Basophils % (Auto) 0 % (0-2.5); Beta Hydroxybutyrate 0.2 mmol/L (<0.6); Eosinophils # (Auto) 0.1 Thou/mm3 (0.0-0.5); Eosinophils % (Auto) 1 % (0-10); Hematocrit 48.9 % (41.0-53.0); Hemoglobin 16.3 g/dL (13.5-16.0); Immature Granulocytes Auto 0.14 Thou/mm3 (0.00-0.00); Lymphocytes # (Auto) 2.1 Thou/mm3 (1.0-4.8); Lymphocytes % (Auto) 11 % (10-50); Mean Corpuscular HGB Conc 33.3 g/dl (31.0-37.0); Mean Corpuscular Hemoglobin 28.6 pg (25.0-35.0); Mean Corpuscular Volume 86 fL (80-100); Monocytes # (Auto) 1.0 Thou/mm3 (0.0-0.8); Monocytes % (Auto) 5 % (0-12); Neutrophils # (Auto) 16.4 Thou/mm3 (1.8-7.7); Neutrophils % (Auto) 83 % (37-80); Nucleated Red Blood Cell # 0.00 Thou/mm3 (0.00-0.00); Nucleated Red Blood Cell % 0 /100 WBC (0); Platelet Count 303 Thou/mm3 (140-440); RDW Standard Deviation 38.0 fL (35.1-43.9); Red Blood Count 5.69 Miln/mm3 (4.50-5.90); White Blood Count 19.9 Thou/mm3 (3.8-10.6)
[2025-09-27 22:48] LABS: Sed Rate (ESR) 9 mm/hr (0-15)
[2025-09-27] MEDS: levETIRAcetam INJ 100 MG/ML VIAL 5ML 2000 MG IVP (22:49)
[2025-09-27] MEDS: ONDANSETRON INJ 2 MG/ML INJ 2 ML 4 MG IVP (22:49)
[2025-09-27 22:54] LABS: B-Type Natriuretic Peptide < 20 pg/mL (0-100)
[2025-09-27 22:55] VITALS: BMI 34.3
[2025-09-27 22:55] LABS: Ammonia 69 uMol/L (11-32)
[2025-09-27 23:00] LABS: Glucose Estimated Average 94 mg/dL (80-131); Hemoglobin A1C 4.9 % Hgb (4.8-6.0)
[2025-09-27 23:01] LABS: D-Dimer 366 ng/mL (<600)
[2025-09-27 23:07] LABS: Lactate (Lactic Acid) 13.3 mMol/L (0.4-2.0)
[2025-09-27 23:14] VITALS: BP 138/86; PULSE 150
[2025-09-27] MEDS: METOPROLOL TARTRATE 25 MG TABLET 50 MG PO (23:14)
[2025-09-27 23:16] VITALS: BP 138/86; PULSE 142; RESP 18; O2SAT 98
[2025-09-27] MEDS: LORazepam 2 MG/ML VIAL IVP (23:16)
[2025-09-27 23:18] LABS: Acetaminophen < 2.0 mcg/mL (10.0-20.0); Alanine Aminotransferase 53 U/L (10-49); Albumin, Serum 5.2 gm/dL (3.5-5.0); Albumin/Globulin Ratio 1.6 (1.2-2.2); Alcohol, Blood Medical < 3.0 mg/dL (0-10.0); Alkaline Phosphatase 102 U/L (46-116); Amylase 46 U/L (30-118); Anion Gap 24 (7-16); Aspartate Amino Transferase 29 U/L (0-34); BUN/Creatinine Ratio 10 Ratio (12-20); Bilirubin,Direct < 0.1 mg/dL (0.0-0.3); Bilirubin,Total 0.3 mg/dL (0.3-1.2); Blood Urea Nitrogen 15 mg/dL (9-23); C-Reactive Protein 1.3 mg/dL (0.0-0.9); Calcium 10.6 mg/dL (8.3-10.6); Calcium (Corrected) 10.6 mg/dL (8.5-10.1); Carbon Dioxide 16.7 mMol/L (20.0-31.0); Chloride 101 mMol/L (98-107); Creatine Kinase 205 U/L (34-171); Creatinine (Component) 1.5 mg/dL (0.6-1.3); Estimated Creatinine Clearance 88.9 mL/min (>60); Globulin 3.2 gm/dL (2.3-3.5); Glucose 187 mg/dL (74-106); Lipase 28 U/L (12-53); Magnesium 1.8 mg/dL (1.6-2.6); Osmolality,Calculated 288 (275-295); Potassium 3.7 mMol/L (3.4-5.1); Procalcitonin < 0.04 ng/ml (0.0-0.49); Sodium 142 mMol/L (136-145); Thyroid Stimulating Hormone 1.24 uIU/mL (0.55-4.78); Total Protein 8.4 gm/dL (5.7-8.2); Troponin I < 0.020 ng/mL (0.0-0.045); Uric Acid 7.2 mg/dL (3.7-9.2); eGFR > 60 See Note
[2025-09-28 00:04] VITALS: BP 124/79; PULSE 112; RESP 17; O2SAT 98
[2025-09-28 00:06] LABS: Collection Type, Urine Clean Catch; Squamous Epithelial Cell,Urine 0 /hpf (0-5)
[2025-09-28 00:20] LABS: Bilirubin,Urine Negative (Negative); Blood,Urine Negative (Negative); Clarity,Urine Clear (Clear/Hazy); Color,Urine Lt-Yellow (Lt Yel-Yel); Culture Indicated,Urine Not Indicated; Glucose, Urine Negative (Negative); Ketones,Urine 1+ (Negative); Leukocyte Esterase,Urine Negative (Negative); Nitrite,Urine Negative (Negative); PH,Urine 5.5 (5.0-7.0); Protein,Urine 1+ (Neg - Trace); RBC,Urine < 1 /hpf (0-3); Specific Gravity,Urine 1.025 (1.001-1.035); Urobilinogen,Urine Negative mg/dL (0.0-1.0); WBC,Urine 1 /hpf (0-5)
[2025-09-28 00:21] LABS: Base Excess, Venous -7 (-3-3); O2 Saturation, Venous 73 % (96-97); PCO2, Venous 40 mmHg (36-56); PO2, Venous 41 mmHg (15-58); pH, Venous 7.29 (7.33-7.66)
[2025-09-28 01:22] LABS: Amphetamine/Methamp Scrn,U Negative (Negative); Barbiturate Screen,Urine Negative (Negative); Benzodiazepines Screen,Urine Negative (Negative); Benzoylecgonine Screen, Ur Negative (Negative); Fentanyl Screen,Urine Negative (Negative); Opiate Screen,Urine Negative (Negative); THC Screen,Urine Negative (Negative)
--- NOTE | 2025-09-28 01:26 | PRELIM_ITS ---
CT scan of the head without intravenous contrast (axial sections with sagittal and coronal reformats). September 28, 2025 0032 hours Clinical History: AMS Comparison: None available at the time of this report. Findings: No evidence of intracranial hemorrhage, mass effect or midline shift. The ventricles and CSF spaces are unremarkable. The calvarium is unremarkable. The mastoid air cells and the visualized paranasal sinuses are clear. Impression: No evidence of intracranial hemorrhage, mass effect or midline shift. Report Electronically Signed By: Pepito Rey 09/28/2025 1:25:48 AM [EST]
[2025-09-28 01:32] LABS: Reflex Lactate? Y
[2025-09-28 01:45] VITALS: BP 123/76; PULSE 104; RESP 16; TEMP 36.9; O2SAT 98
== END 2025-09-28 01:46 | disposition home or self-care (01) ==
PROVIDERS: Emergency Provider Emergency Medicine
DX: R41.82 Altered mental status, unspecified (principal); R56.9 Unspecified convulsions; F20.9 Schizophrenia, unspecified; F84.0 Autistic disorder; R00.0 Tachycardia, unspecified
CPT/HCPCS: 36415; 36600; 51701; 70450; 71045; 80053; 80307; 80320; 80329; 81001; 82010; 82140; 82150; 82248; 82550; 82803; 83036; 83605; 83690; 83735; 83880; 84145; 84443; 84484; 84550; 85025; 85379; 85652; 86140; 87040; 87502; 87635; 93005; 96361; 96372; 96374; 96375; 99284; J1200; J1630; J1953; J2060; J2405; J3360; J3490; J7120; A9270; G0480